=== PATIENT | male | born 1960 | race Caucasian/White ===

== ENCOUNTER 2020-06-13 08:14 | Emergency (ER) | payer OTHER, SELFPAY ==
--- NOTE | 2020-06-13 | XR_ITS ---
EXAMINATION: XR CHEST, PORTABLE CLINICAL INFORMATION: Cough, fever COMPARISON: Report chest radiograph 04/30/2017, images unavailable TECHNIQUE: Portable upright AP view of the chest is performed. FINDINGS: There are low lung volumes. There is no airspace consolidation or definite groundglass opacity. No effusion. The heart is normal in size. The vascularity is normal. The hilar and mediastinal contours are unremarkable. No acute bony abnormality. IMPRESSION: No airspace consolidation or definite groundglass opacity.
[2020-06-13 08:26] VITALS: BP 126/85; PULSE 127; RESP 20; TEMP 38.4; O2SAT 95; BMI 27.9
--- NOTE | 2020-06-13 08:40 | ED_ITS ---
HPI - URI/Sore Throat General Chief Complaint: Fever Stated Complaint: COUGH, CHILLS, BODY ACHES Time Seen by Provider: 06/13/20 08:25 Related Data Allergies Allergy/AdvReac Type Severity Reaction Status Date / Time No Known Allergies Allergy Mild N/A Unverified 05/30/20 14:43 Review of Systems Constitutional: Constitutional: Reports as per HPI, Denies difficulty sleeping, Reports fever(s), Denies headache(s) and Denies snoring Eyes: Eyes: Reports as per HPI ENT: Denies dysphagia, Denies headache(s), Denies odynophagia and Reports post nasal drip Cardiovascular: Cardiovascular: Denies acrocyanosis, Denies chest pain with activity, Denies pedal edema, Denies edema, Denies lightheadedness, Denies Loss of Consciousness, Denies radiating jaw, neck or arm pain, Denies palpitations, Denies dyspnea, Denies dyspnea on exertion, Denies orthopnea and Denies paroxysmal nocturnal dyspnea Respiratory: Respiratory: Reports cough, Denies hemoptysis, Denies excessive phlegm production, Denies pain on inspiration, Denies pain with cough, Denies dyspnea, Denies dyspnea on exertion and Denies snoring Gastrointestinal: Gastrointestinal: Denies hematochezia, Denies change in bowel habits, Denies tenesmus, Denies change in stool character, Denies coffee ground emesis, Denies constipation, Denies GI cramping, Denies dysphagia, Denies excessive flatus, Denies early satiety, Denies dyspepsia, Denies heartburn, Denies fecal incontinence, Denies diarrhea, Denies loose stools, Denies nausea, Denies odynophagia and Denies hematemesis Musculoskeletal: Musculoskeletal: Reports no additional musculoskeletal complaints Integumentary/Breasts: Skin/Breast: Reports system reviewed and no additional complaints, except as docu Neurologic: Reports system reviewed and no additional complaints, except as documented and Denies headache(s) Psychiatric: Psychiatric: Reports no additional psychiatric complaints Endocrine: Endocrine: Denies palpitations PMFSH Past Medical History Medical History (Updated 06/13/20 @ 14:26 by Checo Mancilla NP) Epilepsia High blood cholesterol HTN (hypertension) Surgical History (Updated 06/13/20 @ 08:34 by Bruna Hernandez) History of appendectomy History of left knee replacement History of placement of ear tubes Social History Social History Alcohol intake: current Alcohol intake frequency: a few times a month Alcohol type: beer Smoked in Last 30 Days: No Use of substances other than those prescribed or required for medical reasons: No Advance Directives: No Advance Directives Information Provided: Yes Advance Directives on File: No Physical Exam Vital Signs and I&O and Narrative: Vital Signs and I&O: Vital Signs Temp 100.2 F 06/13/20 14:14 Pulse 100 06/13/20 14:14 Resp 18 06/13/20 14:14 BP 127/81 06/13/20 14:14 Pulse Ox 95 06/13/20 14:14 Intake & Output 06/12/20 06/13/20 06/13/20 18:59 06:59 18:59 Weight 83.461 kg Body Mass Index 27.9 Const: General: cooperative and healthy appearing; No acute distress Orientation/consciousness: oriented to person, oriented to place, oriented to time and patient oriented x3 HENMT: Head: Yes normal to inspection Eyes: Visual Howell: normal visual howell by confrontation Neck: Neck: Yes normal visual inspection Chest: Chest palpation & inspection: normal inspection of the chest Resp: Effort & Inspection: normal respiratory effort Cardio: Jugular venous distension: JVD present : General: Yes no CVA tenderness Back/Spine/Pelvis: Back: no CVA tenderness Skin: General skin exam: no rashes or lesions noted Neuro: General: oriented to person, oriented to place, oriented to time and patient oriented x3 MDM - URI/Sore Throat MDM Narrative Medical decision making narrative: Significant others with similar symptoms. Here more to get COVID-19 test. Otherwise overall nontoxic appearing. Labs overall stable. Chest x-ray negative. COVID-19 positive. Differential Diagnosis Differential diagnosis: Likely upper respiratory infection, viral infection and influenza; Unlikely croup, otitis media, sinusitis, bronchitis and pharyngitis Lab Data Result diagrams: 06/13/20 09:45 06/13/20 09:45 Labs: Lab Results 06/13/20 06/13/20 06/13/20 Range/Units 09:45 09:45 09:45 WBC 5.9 (4.8-10.8) X10*3/uL RBC 4.64 (4.60-5.80) X10*6/uL Hgb 15.5 (14.0-18.0) g/dl Hct 44.7 (42-52) % MCV 96.3 (80-98) fL MCH 33.4 H (27.0-33.0) pg MCHC 34.7 (31.0-36.0) g/dl RDW 13.1 (11.0-16.0) % Plt Count 90 L (160-400) X10*3/uL MPV 10.5 (9.4-12.4) fL Immature Gran % (Auto) 0.5 H (0.0-0.4) % Neut % (Auto) 90.2 H (45-73) % Lymph % (Auto) 3.9 L (20-40) % [place] % (Auto) 5.4 (2-11) % Eos % (Auto) 0.0 (0-4) % Baso % (Auto) 0.0 (0-2) % Neut # (Auto) 5.3 (2.0-8.3) X10*3/uL Lymph # (Auto) 0.2 L (1.2-4.9) X10*3/uL [place] # (Auto) 0.3 (0.1-1.2) X10*3/uL Eos # (Auto) 0.0 (0.0-0.4) X10*3/uL Baso # (Auto) 0.0 (0.0-0.2) X10*3/uL Abs Immat Gran (auto) 0.03 (0.00-0.03) X10*3/uL Absolute Nucleated RBC 0.000 (0.0-0.012) X10*3/uL Nucleated RBC % (auto) 0.0 (0.0-0.2) /100WBC Smear Tech's Comments VERIFIED Sodium 139 (135-145) mmol/L Potassium 4.4 (3.3-5.1) mmol/l Chloride 104 (96-108) mmol/L Carbon Dioxide 27 (22-29) mmol/L Anion Gap 12 (12-20) BUN 11 (9-16) mg/dL Creatinine (0.5-1.4) mg/dL Estim Creat Clear Calc 81.2 Estimated GFR > 60 Random Glucose 112 (60-115) mg/dL Lactic Acid 1.3 (0.5-2.0) mmol/L Calcium 9.5 (8.4-10.2) mg/dL Coronavirus (PCR) (Negative) Influenza Type A (PCR) (Negative) Influenza Type B (PCR) (Negative) Influenza A & B Note RSV RNA Qual (PCR) (Negative) 06/13/20 06/13/20 Range/Units 12:35 12:35 WBC (4.8-10.8) X10*3/uL RBC (4.60-5.80) X10*6/uL Hgb (14.0-18.0) g/dl Hct (42-52) % MCV (80-98) fL MCH (27.0-33.0) pg MCHC (31.0-36.0) g/dl RDW (11.0-16.0) % Plt Count (160-400) X10*3/uL MPV (9.4-12.4) fL Immature Gran % (Auto) (0.0-0.4) % Neut % (Auto) (45-73) % Lymph % (Auto) (20-40) % [place] % (Auto) (2-11) % Eos % (Auto) (0-4) % Baso % (Auto) (0-2) % Neut # (Auto) (2.0-8.3) X10*3/uL Lymph # (Auto) (1.2-4.9) X10*3/uL [place] # (Auto) (0.1-1.2) X10*3/uL Eos # (Auto) (0.0-0.4) X10*3/uL Baso # (Auto) (0.0-0.2) X10*3/uL Abs Immat Gran (auto) (0.00-0.03) X10*3/uL Absolute Nucleated RBC (0.0-0.012) X10*3/uL Nucleated RBC % (auto) (0.0-0.2) /100WBC Smear Tech's Comments Sodium (135-145) mmol/L Potassium (3.3-5.1) mmol/l Chloride (96-108) mmol/L Carbon Dioxide (22-29) mmol/L Anion Gap (12-20) BUN (9-16) mg/dL Creatinine (0.5-1.4) mg/dL Estim Creat Clear Calc Estimated GFR Random Glucose (60-115) mg/dL Lactic Acid (0.5-2.0) mmol/L Calcium (8.4-10.2) mg/dL Coronavirus (PCR) POSITIVE (Negative) Influenza Type A (PCR) NEGATIVE (Negative) Influenza Type B (PCR) NEGATIVE (Negative) Influenza A & B Note See Note RSV RNA Qual (PCR) NEGATIVE (Negative) Discharge Plan Discharge Clinical Impression: Viral infection Patient Disposition: Home, Self-Care Instructions: COVID-19 (Coronavirus Disease 2019) (ED)
[2020-06-13] MEDS: 0.9 % Sodium Chloride 1,000 ML 999 ML IVCONT ×2 (09:50→14:21)
[2020-06-13 10:01] LABS: Lymphocytes Absolute Auto 0.2 X10*3/uL (1.2-4.9); MANUAL DIFF FLAG SCAN; Mean Platelet Volume 10.5 fL (9.4-12.4); PLT CLUMP 1; Red Cell Distribution Width 13.1 % (11.0-16.0); SCAN SMEAR FLAG 1
[2020-06-13 10:03] LABS: Hematocrit 44.7 % (42-52); Hemoglobin 15.5 g/dl (14.0-18.0); Imm Gran Abs Auto 0.03 X10*3/uL (0.00-0.03); Imm Gran Pct Auto 0.5 % (0.0-0.4); Lymphocytes Percent Auto 3.9 % (20-40); Mean Corpuscular HGB Conc 34.7 g/dl (31.0-36.0); Mean Corpuscular Hemoglobin 33.4 pg (27.0-33.0); Mean Corpuscular Volume 96.3 fL (80-98); Monocytes Absolute Auto 0.3 X10*3/uL (0.1-1.2); Monocytes Percent Auto 5.4 % (2-11); Neutrophils Absolute Auto 5.3 X10*3/uL (2.0-8.3); Neutrophils Percent Auto 90.2 % (45-73); Red Blood Count 4.64 X10*6/uL (4.60-5.80); White Blood Count 5.9 X10*3/uL (4.8-10.8)
[2020-06-13 10:19] LABS: Lactic Acid 1.3 mmol/L (0.5-2.0)
[2020-06-13] MEDS: Acetaminophen 325 MG TABLET 975 MG PO (10:26)
[2020-06-13 10:30] VITALS: TEMP 39.1
[2020-06-13 10:34] LABS: Platelet Count 90 X10*3/uL (160-400); SLIDE REVIEW VERIFIED
[2020-06-13 10:35] LABS: Anion Gap 12 (12-20); Blood Urea Nitrogen 11 mg/dL (9-16); Calcium 9.5 mg/dL (8.4-10.2); Carbon Dioxide 27 mmol/L (22-29); Chloride 104 mmol/L (96-108); Creatinine Clr Calc Pharmacy 81.2; Estimated Glomerular Filt Rate > 60; Glucose Random 112 mg/dL (60-115); Potassium 4.4 mmol/l (3.3-5.1); Sodium 139 mmol/L (135-145)
[2020-06-13 11:15] VITALS: TEMP 38.6; O2SAT 95
[2020-06-13] MEDS: Ketorolac Tromethamine 15 MG/ML VIAL 30 MG IV (13:13)
[2020-06-13 13:26] LABS: Influenza A PCR NEGATIVE (Negative); Influenza B PCR NEGATIVE (Negative); Resp Syncy Virus RNA Qual PCR NEGATIVE (Negative)
[2020-06-13 13:37] LABS: SARS COV2 PCR INHOUSE POSITIVE (Negative)
[2020-06-13 13:38] VITALS: BP 100/73; PULSE 64; RESP 14
[2020-06-13 14:14] VITALS: BP 127/81; PULSE 100; RESP 18; TEMP 37.9; O2SAT 95
== END 2020-06-13 14:55 | disposition home or self-care (01) ==
PROVIDERS: Nurse Practitioner Primary Care; Emergency Provider Emergency Medicine; PCP Internal Medicine
DX: U07.1 COVID-19 (principal); I10 Essential (primary) hypertension
CPT/HCPCS: 36415; 71045; 80048; 83605; 85025; 87040; 87631; 87635; 96361; 96374; 99284

== ENCOUNTER 2020-07-01 08:38 | Outpatient (REF) | payer OTHER, SELFPAY ==
[2020-07-01 11:10] LABS: Glucose Urine UA NEG (NEG); Leukocyte Esterase Urine NEG (NEG); Nitrite Urine NEG (NEG); Urine Blood NEG (NEG); Urine Ketones NEG (NEG); Urine Protein NEG (NEG-TRACE)
[2020-07-01 11:19] LABS: Appearance Urine CLEAR; Color Urine YELLOW
[2020-07-01 11:46] LABS: Phenytoin Dilantin 8.5 ug/mL (10.0-20.0)
[2020-07-01 11:51] LABS: Alanine Aminotransferase 37 U/L (0-40); Albumin Level 4.5 g/dL (3.5-5.0); Alkaline Phosphatase 85 U/L (39-117); Anion Gap 12 (12-20); Aspartate Amino Transferase 18 U/L (5-37); Bilirubin Total 0.5 mg/dL (0.0-1.0); Blood Urea Nitrogen 13 mg/dL (9-16); Calcium 9.6 mg/dL (8.4-10.2); Carbon Dioxide 26 mmol/L (22-29); Chloride 107 mmol/L (96-108); Cholesterol 120 mg/dL; Estimated Glomerular Filt Rate > 60; Glucose Fasting 96 mg/dL (60-99); HDL Cholesterol 42 mg/dL; LDL Cholesterol Calculated 54 mg/dl; Potassium 4.2 mmol/l (3.3-5.1); Sodium 141 mmol/L (135-145); Total Protein 6.6 g/dL (6.5-8.0); Triglycerides 122 mg/dL
[2020-07-01 11:57] LABS: TSH reflex Free T4 0.76 mIU/mL (0.32-4.0)
== END 2020-07-01 08:39 | disposition home or self-care (01) ==
LOC: HO.10HDL 08:38
PROVIDERS: Visit Provider Internal Medicine
DX: I10 Essential (primary) hypertension (principal); E78.5 Hyperlipidemia, unspecified; G40.909 Epilepsy, unspecified, not intractable, without status epilepticus; K21.9 Gastro-esophageal reflux disease without esophagitis; E66.3 Overweight
CPT/HCPCS: 80053; 80061; 80185; 81003; 84443

== ENCOUNTER 2020-10-01 08:18 | Outpatient (REF) | payer OTHER, SELFPAY ==
[2020-10-01 10:08] LABS: MANUAL DIFF FLAG NO
[2020-10-01 10:14] LABS: Basophils Percent Auto 0.2 % (0-2); Hemoglobin 15.9 g/dl (14.0-18.0); Imm Gran Abs Auto 0.02 X10*3/uL (0.00-0.03); Imm Gran Pct Auto 0.5 % (0.0-0.4); Lymphocytes Absolute Auto 0.7 X10*3/uL (1.2-4.9); Lymphocytes Percent Auto 17.3 % (20-40); Mean Corpuscular HGB Conc 34.6 g/dl (31.0-36.0); Mean Corpuscular Hemoglobin 32.9 pg (27.0-33.0); Mean Platelet Volume 10.9 fL (9.4-12.4); Monocytes Absolute Auto 0.3 X10*3/uL (0.1-1.2); Monocytes Percent Auto 6.6 % (2-11); Neutrophils Absolute Auto 3.1 X10*3/uL (2.0-8.3); Neutrophils Percent Auto 75.4 % (45-73); Platelet Count 150 X10*3/uL (160-400); Red Blood Count 4.84 X10*6/uL (4.60-5.80); Red Cell Distribution Width 13.7 % (11.0-16.0); White Blood Count 4.1 X10*3/uL (4.8-10.8)
[2020-10-01 10:56] LABS: Alanine Aminotransferase 33 U/L (0-40); Albumin Level 4.7 g/dL (3.5-5.0); Alkaline Phosphatase 73 U/L (39-117); Anion Gap 13 (12-20); Aspartate Amino Transferase 20 U/L (5-37); Bilirubin Total 0.5 mg/dL (0.0-1.0); Blood Urea Nitrogen 15 mg/dL (9-16); Calcium 9.4 mg/dL (8.4-10.2); Carbon Dioxide 25 mmol/L (22-29); Chloride 106 mmol/L (96-108); Cholesterol 169 mg/dL; Estimated Glomerular Filt Rate > 60; Glucose Fasting 103 mg/dL (60-99); HDL Cholesterol 59 mg/dL; LDL Cholesterol Calculated 88 mg/dl; Potassium 4.3 mmol/l (3.3-5.1); Sodium 140 mmol/L (135-145); Total Protein 6.9 g/dL (6.5-8.0); Triglycerides 111 mg/dL
[2020-10-01 10:57] LABS: Glucose Urine UA NEG (NEG); Leukocyte Esterase Urine NEG (NEG); Nitrite Urine NEG (NEG); Urine Blood NEG (NEG); Urine Ketones NEG (NEG); Urine Protein NEG (NEG-TRACE)
[2020-10-01 10:58] LABS: Appearance Urine CLEAR; Color Urine YELLOW
[2020-10-01 11:19] LABS: TSH reflex Free T4 1.11 mIU/mL (0.32-4.0)
[2020-10-01 11:32] LABS: Phenytoin Dilantin 12.3 ug/mL (10.0-20.0)
== END 2020-10-01 08:19 | disposition home or self-care (01) ==
LOC: HO.10HDL 08:18
PROVIDERS: Visit Provider Internal Medicine
DX: E78.00 Pure hypercholesterolemia, unspecified (principal); G40.909 Epilepsy, unspecified, not intractable, without status epilepticus; E66.3 Overweight; K21.9 Gastro-esophageal reflux disease without esophagitis; I10 Essential (primary) hypertension
CPT/HCPCS: 36415; 80053; 80061; 80185; 81003; 84443; 85025

== ENCOUNTER 2020-12-24 08:06 | Outpatient (REF) | payer OTHER, SELFPAY ==
[2020-12-24 10:15] LABS: MANUAL DIFF FLAG NO
[2020-12-24 10:36] LABS: Basophils Percent Auto 0.6 % (0-2); Hematocrit 45.3 % (42-52); Hemoglobin 15.5 g/dl (14.0-18.0); Imm Gran Abs Auto 0.01 X10*3/uL (0.00-0.03); Imm Gran Pct Auto 0.3 % (0.0-0.4); Lymphocytes Absolute Auto 0.8 X10*3/uL (1.2-4.9); Lymphocytes Percent Auto 22.2 % (20-40); Mean Corpuscular HGB Conc 34.2 g/dl (31.0-36.0); Mean Corpuscular Hemoglobin 32.6 pg (27.0-33.0); Mean Corpuscular Volume 95.4 fL (80-98); Monocytes Absolute Auto 0.2 X10*3/uL (0.1-1.2); Monocytes Percent Auto 6.4 % (2-11); Neutrophils Absolute Auto 2.4 X10*3/uL (2.0-8.3); Neutrophils Percent Auto 70.5 % (45-73); Platelet Count 136 X10*3/uL (160-400); Red Blood Count 4.75 X10*6/uL (4.60-5.80); Red Cell Distribution Width 13.5 % (11.0-16.0); White Blood Count 3.4 X10*3/uL (4.8-10.8)
[2020-12-24 10:41] LABS: Alanine Aminotransferase 24 U/L (0-40); Albumin Level 4.5 g/dL (3.5-5.0); Alkaline Phosphatase 70 U/L (39-117); Anion Gap 13 (12-20); Aspartate Amino Transferase 19 U/L (5-37); Bilirubin Total 0.5 mg/dL (0.0-1.0); Blood Urea Nitrogen 16 mg/dL (9-16); Calcium 9.2 mg/dL (8.4-10.2); Carbon Dioxide 24 mmol/L (22-29); Chloride 106 mmol/L (96-108); Cholesterol 161 mg/dL; Estimated Glomerular Filt Rate > 60; Glucose Fasting 153 mg/dL (60-99); HDL Cholesterol 54 mg/dL; LDL Cholesterol Calculated 82 mg/dl; Potassium 3.9 mmol/L (3.3-5.1); Sodium 139 mmol/L (135-145); Total Protein 6.7 g/dL (6.5-8.0); Triglycerides 125 mg/dL
[2020-12-24 10:51] LABS: Glucose Urine UA NEG (NEG); Leukocyte Esterase Urine NEG (NEG); Nitrite Urine NEG (NEG); PH 5.5 (5.0-8.0); Urine Blood NEG (NEG); Urine Ketones NEG (NEG); Urine Protein NEG (NEG-TRACE)
[2020-12-24 10:55] LABS: Appearance Urine CLEAR; Color Urine YELLOW
[2020-12-24 10:59] LABS: Phenytoin Dilantin 10.1 ug/mL (10.0-20.0)
[2020-12-24 11:04] LABS: TSH reflex Free T4 1.14 uIU/mL (0.32-4.0)
== END 2020-12-24 08:07 | disposition home or self-care (01) ==
LOC: HO.10HDL 08:06
PROVIDERS: Visit Provider Internal Medicine
DX: G47.33 Obstructive sleep apnea (adult) (pediatric) (principal); E78.00 Pure hypercholesterolemia, unspecified; I10 Essential (primary) hypertension; K21.9 Gastro-esophageal reflux disease without esophagitis; K59.00 Constipation, unspecified; G40.909 Epilepsy, unspecified, not intractable, without status epilepticus; E66.3 Overweight; Z79.899 Other long term (current) drug therapy
CPT/HCPCS: 36415; 80053; 80061; 80185; 81003; 84443; 85025

== ENCOUNTER 2021-04-01 08:06 | Outpatient (REF) | payer OTHER, SELFPAY ==
[2021-04-01 08:28] LABS: MANUAL DIFF FLAG NO
[2021-04-01 08:41] LABS: Hematocrit 42.7 % (42-52); Hemoglobin 14.9 g/dl (14.0-18.0); Imm Gran Abs Auto 0.03 X10*3/uL (0.00-0.03); Imm Gran Pct Auto 0.7 % (0.0-0.4); Lymphocytes Absolute Auto 0.7 X10*3/uL (1.2-4.9); Lymphocytes Percent Auto 16.6 % (20-40); Mean Corpuscular HGB Conc 34.9 g/dl (31.0-36.0); Mean Corpuscular Hemoglobin 33.3 pg (27.0-33.0); Mean Corpuscular Volume 95.3 fL (80-98); Mean Platelet Volume 10.4 fL (9.4-12.4); Monocytes Absolute Auto 0.3 X10*3/uL (0.1-1.2); Monocytes Percent Auto 7.4 % (2-11); Neutrophils Absolute Auto 3.3 X10*3/uL (2.0-8.3); Neutrophils Percent Auto 75.3 % (45-73); Platelet Count 126 X10*3/uL (160-400); Red Blood Count 4.48 X10*6/uL (4.60-5.80); Red Cell Distribution Width 13.2 % (11.0-16.0); White Blood Count 4.3 X10*3/uL (4.8-10.8)
[2021-04-01 09:06] LABS: Alanine Aminotransferase 25 U/L (0-40); Albumin Level 4.4 g/dL (3.5-5.0); Alkaline Phosphatase 71 U/L (39-117); Anion Gap 11 (12-20); Aspartate Amino Transferase 20 U/L (5-37); Bilirubin Total 0.5 mg/dL (0.0-1.0); Blood Urea Nitrogen 11 mg/dL (9-16); Calcium 9.3 mg/dL (8.4-10.2); Carbon Dioxide 25 mmol/L (22-29); Chloride 107 mmol/L (96-108); Cholesterol 161 mg/dL; Estimated Glomerular Filt Rate > 60; Glucose Fasting 101 mg/dL (60-99); HDL Cholesterol 57 mg/dL; LDL Cholesterol Calculated 87 mg/dl; Potassium 4.1 mmol/L (3.3-5.1); Sodium 139 mmol/L (135-145); Total Protein 6.5 g/dL (6.5-8.0); Triglycerides 88 mg/dL
[2021-04-01 09:26] LABS: Phenytoin Dilantin 8.1 ug/mL (10.0-20.0)
[2021-04-01 09:30] LABS: TSH reflex Free T4 0.89 uIU/mL (0.32-4.0)
[2021-04-01 10:57] LABS: Glucose Urine UA NEG (NEG); Leukocyte Esterase Urine NEG (NEG); Nitrite Urine NEG (NEG); Urine Blood NEG (NEG); Urine Ketones NEG (NEG); Urine Protein NEG (NEG-TRACE)
[2021-04-01 11:00] LABS: Appearance Urine CLEAR; Color Urine YELLOW
== END 2021-04-01 08:07 | disposition home or self-care (01) ==
LOC: HO.LAB 08:06
PROVIDERS: PCP Internal Medicine; Visit Provider Internal Medicine
DX: I10 Essential (primary) hypertension (principal); E78.00 Pure hypercholesterolemia, unspecified; E66.3 Overweight; G40.909 Epilepsy, unspecified, not intractable, without status epilepticus; K21.9 Gastro-esophageal reflux disease without esophagitis
CPT/HCPCS: 36415; 80053; 80061; 80185; 81003; 84443; 85025

== ENCOUNTER 2021-06-10 16:39 | Outpatient (REF) | payer OTHER, SELFPAY | END 2021-06-10 16:40 | disposition home or self-care (01) | LOC: HO.LNP 16:39 | PROVIDERS: Visit Provider Physician Assistant Medical | DX: J01.90 Acute sinusitis, unspecified (principal); Z20.822 Contact with and (suspected) exposure to COVID-19 | CPT/HCPCS: U0003; U0005 ==

== ENCOUNTER 2022-06-03 06:37 | Outpatient (REF) | payer OTHER, SELFPAY ==
[2022-06-03 06:42] LABS: MANUAL DIFF FLAG NO
[2022-06-03 07:43] LABS: Basophils Percent Auto 0.2 % (0-2); Hematocrit 43.4 % (42.0-52.0); Hemoglobin 15.1 g/dl (14.0-18.0); Imm Gran Abs Auto 0.03 X10*3/uL (0.00-0.03); Imm Gran Pct Auto 0.5 % (0.0-0.4); Lymphocytes Absolute Auto 0.9 X10*3/uL (1.2-4.9); Lymphocytes Percent Auto 14.9 % (20-40); Mean Corpuscular HGB Conc 34.8 g/dl (31.0-36.0); Mean Corpuscular Hemoglobin 32.4 pg (27.0-33.0); Mean Corpuscular Volume 93.1 fL (80.0-98.0); Mean Platelet Volume 10.9 fL (9.4-12.4); Monocytes Absolute Auto 0.4 X10*3/uL (0.1-1.2); Monocytes Percent Auto 7.2 % (2-11); Neutrophils Absolute Auto 4.5 x10*3/uL (2.0-8.3); Neutrophils Percent Auto 77.2 % (45-73); Platelet Count 142 X10*3/uL (160-400); Red Blood Count 4.66 X10*6/uL (4.60-5.80); Red Cell Distribution Width 13.5 % (11.0-16.0); White Blood Count 5.9 X10*3/uL (4.8-10.8)
[2022-06-03 08:00] LABS: Alanine Aminotransferase 31 U/L (0-40); Albumin Level 4.6 g/dL (3.5-5.0); Alkaline Phosphatase 84 U/L (39-117); Anion Gap 16 (12-20); Aspartate Amino Transferase 16 U/L (5-37); Bilirubin Total 0.6 mg/dL (0.0-1.0); Blood Urea Nitrogen 15 mg/dL (9-16); Carbon Dioxide 23 mmol/L (22-29); Chloride 106 mmol/L (96-108); Cholesterol 183 mg/dL; Estimated Glomerular Filt Rate > 60; Glucose Fasting 107 mg/dL (60-99); HDL Cholesterol 63 mg/dL; LDL Cholesterol Calculated 102 mg/dl; Potassium 4.2 mmol/L (3.3-5.1); Sodium 141 mmol/L (135-145); Total Protein 6.9 g/dL (6.5-8.0); Triglycerides 91 mg/dL
[2022-06-03 08:14] LABS: Prostate Specific Antigen Scr 0.12 ng/mL (<0.05-4.0); TSH reflex Free T4 1.53 uIU/mL (0.32-4.0); Vitamin D 25-OH Total 46.7 ng/mL (>30)
[2022-06-03 08:26] LABS: Appearance Urine Clear; Color Urine Yellow; Glucose Urine UA Negative (Negative); Leukocyte Esterase Urine Negative (Negative); Nitrite Urine Negative (Negative); Specific Gravity - Urine 1.025 (1.005-1.025); Urine Blood Negative (Negative); Urine Ketones Trace mg/dL (Negative); Urine Protein Negative (Neg-Trace)
[2022-06-03 09:54] LABS: Phenytoin Dilantin 7.2 ug/mL (10.0-20.0)
== END 2022-06-03 06:38 | disposition home or self-care (01) ==
LOC: HO.LAB 06:37
PROVIDERS: PCP Internal Medicine; Visit Provider Internal Medicine
DX: Z00.00 Encounter for general adult medical examination without abnormal findings (principal); Z12.5 Encounter for screening for malignant neoplasm of prostate; E78.00 Pure hypercholesterolemia, unspecified; E55.9 Vitamin D deficiency, unspecified; I10 Essential (primary) hypertension; G40.909 Epilepsy, unspecified, not intractable, without status epilepticus
CPT/HCPCS: 36415; 80053; 80061; 80185; 81003; 82306; 84153; 84443; 85025

== ENCOUNTER 2022-10-07 11:50 | Outpatient (REF) | payer OTHER, SELFPAY ==
[2022-10-07 12:01] LABS: MANUAL DIFF FLAG NO
[2022-10-07 12:31] LABS: Basophils Percent Auto 0.3 % (0-2); Hematocrit 44.1 % (42.0-52.0); Hemoglobin 15.5 g/dl (14.0-18.0); Imm Gran Abs Auto 0.02 X10*3/uL (0.00-0.03); Imm Gran Pct Auto 0.3 % (0.0-0.4); Lymphocytes Percent Auto 16.9 % (20-40); Mean Corpuscular HGB Conc 35.1 g/dl (31.0-36.0); Mean Corpuscular Hemoglobin 32.8 pg (27.0-33.0); Mean Corpuscular Volume 93.2 fL (80.0-98.0); Mean Platelet Volume 10.8 fL (9.4-12.4); Monocytes Absolute Auto 0.4 X10*3/uL (0.1-1.2); Monocytes Percent Auto 6.4 % (2-11); Neutrophils Absolute Auto 4.4 x10*3/uL (2.0-8.3); Neutrophils Percent Auto 76.1 % (45-73); Platelet Count 145 X10*3/uL (160-400); Red Blood Count 4.73 X10*6/uL (4.60-5.80); Red Cell Distribution Width 13.6 % (11.0-16.0); White Blood Count 5.8 X10*3/uL (4.8-10.8)
[2022-10-07 12:33] LABS: Appearance Urine Clear; Color Urine Yellow; Glucose Urine UA Negative (Negative); Leukocyte Esterase Urine Negative (Negative); Nitrite Urine Negative (Negative); PH 5.5 (5.0-9.0); Specific Gravity - Urine >= 1.030 (1.005-1.025); Urine Blood Negative (Negative); Urine Ketones Trace mg/dL (Negative); Urine Protein Negative (Neg-Trace)
[2022-10-07 12:54] LABS: Phenytoin Dilantin 10.3 ug/mL (10.0-20.0)
[2022-10-07 13:03] LABS: Alanine Aminotransferase 29 U/L (0-40); Albumin Level 4.6 g/dL (3.5-5.0); Alkaline Phosphatase 69 U/L (39-117); Anion Gap 15 (12-20); Aspartate Amino Transferase 22 U/L (5-37); Bilirubin Total 0.6 mg/dL (0.0-1.0); Blood Urea Nitrogen 21 mg/dL (9-16); Calcium 9.6 mg/dL (8.4-10.2); Carbon Dioxide 23 mmol/L (22-29); Chloride 109 mmol/L (96-108); Cholesterol 166 mg/dL; Estimated Glomerular Filt Rate > 60; Glucose Fasting 95 mg/dL (60-99); HDL Cholesterol 59 mg/dL; LDL Cholesterol Calculated 85 mg/dl; Potassium 4.4 mmol/L (3.3-5.1); Sodium 143 mmol/L (135-145); Total Protein 6.6 g/dL (6.5-8.0); Triglycerides 113 mg/dL
[2022-10-07 13:18] LABS: TSH reflex Free T4 1.11 uIU/mL (0.32-4.0); Vitamin D 25-OH Total 15.1 ng/mL (>30)
== END 2022-10-07 11:51 | disposition home or self-care (01) ==
LOC: HO.LAB 11:50
PROVIDERS: PCP Internal Medicine; Visit Provider Internal Medicine
DX: I10 Essential (primary) hypertension (principal); E78.00 Pure hypercholesterolemia, unspecified; E55.9 Vitamin D deficiency, unspecified; G40.909 Epilepsy, unspecified, not intractable, without status epilepticus
CPT/HCPCS: 36415; 80053; 80061; 80185; 81003; 82306; 84443; 85025

== ENCOUNTER 2023-01-21 08:33 | Outpatient (REF) | payer OTHER, SELFPAY ==
[2023-01-21 09:02] LABS: MANUAL DIFF FLAG NO
[2023-01-21 09:23] LABS: Basophils Percent Auto 0.4 % (0-2); Eosinophils Percent Auto 0.2 % (0-4); Hematocrit 43.4 % (42.0-52.0); Imm Gran Abs Auto 0.04 X10*3/uL (0.00-0.03); Imm Gran Pct Auto 0.7 % (0.0-0.4); Lymphocytes Absolute Auto 0.8 X10*3/uL (1.2-4.9); Mean Corpuscular HGB Conc 34.6 g/dl (31.0-36.0); Mean Corpuscular Hemoglobin 32.4 pg (27.0-33.0); Mean Corpuscular Volume 93.7 fL (80.0-98.0); Mean Platelet Volume 10.6 fL (9.4-12.4); Monocytes Absolute Auto 0.3 X10*3/uL (0.1-1.2); Monocytes Percent Auto 5.8 % (2-11); Neutrophils Absolute Auto 4.3 x10*3/uL (2.0-8.3); Neutrophils Percent Auto 77.9 % (45-73); Platelet Count 208 X10*3/uL (160-400); Red Blood Count 4.63 X10*6/uL (4.60-5.80); Red Cell Distribution Width 13.7 % (11.0-16.0); White Blood Count 5.5 X10*3/uL (4.8-10.8)
[2023-01-21 09:34] LABS: Appearance Urine Clear; Color Urine Yellow; Glucose Urine UA Negative (Negative); Leukocyte Esterase Urine Negative (Negative); Nitrite Urine Negative (Negative); PH 6.5 (5.0-9.0); Specific Gravity - Urine 1.015 (1.005-1.025); Urine Blood Negative (Negative); Urine Ketones Negative (Negative); Urine Protein Negative (Neg-Trace)
[2023-01-21 10:19] LABS: Phenytoin Dilantin 8.8 ug/mL (10.0-20.0)
[2023-01-21 10:33] LABS: Alanine Aminotransferase 22 U/L (0-40); Albumin Level 4.2 g/dL (3.5-5.0); Alkaline Phosphatase 62 U/L (39-117); Anion Gap 11 (12-20); Aspartate Amino Transferase 17 U/L (5-37); Bilirubin Total 0.6 mg/dL (0.0-1.0); Blood Urea Nitrogen 15 mg/dL (9-16); Calcium 9.4 mg/dL (8.4-10.2); Carbon Dioxide 25 mmol/L (22-29); Chloride 108 mmol/L (96-108); Cholesterol 143 mg/dL; Estimated Glomerular Filt Rate > 60; Glucose Fasting 97 mg/dL (60-99); HDL Cholesterol 55 mg/dL; LDL Cholesterol Calculated 78 mg/dl; Potassium 4.4 mmol/L (3.3-5.1); Sodium 140 mmol/L (135-145); Total Protein 6.3 g/dL (6.5-8.0); Triglycerides 53 mg/dL
[2023-01-21 10:41] LABS: TSH reflex Free T4 0.51 uIU/mL (0.32-4.0); Vitamin D 25-OH Total 33.6 ng/mL (>30)
== END 2023-01-21 08:34 | disposition home or self-care (01) ==
LOC: HO.LAB 08:33
PROVIDERS: PCP Internal Medicine; Visit Provider Internal Medicine
DX: R30.0 Dysuria (principal); E55.9 Vitamin D deficiency, unspecified; I10 Essential (primary) hypertension; G40.909 Epilepsy, unspecified, not intractable, without status epilepticus; E78.00 Pure hypercholesterolemia, unspecified
CPT/HCPCS: 36415; 80053; 80061; 80185; 81003; 82306; 84443; 85025

== ENCOUNTER 2023-04-12 16:42 | Outpatient (AMB) | payer OTHER, SELFPAY ==
[2023-04-12 16:46] VITALS: BP 122/78; PULSE 80; O2SAT 96; BMI 26.9
--- NOTE | 2023-04-12 16:46 | MHC.PC.OV ---
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 Accompanied by: Self / Same As Patient Allergies No Known Allergies Allergy (Mild, Verified 04/12/23 17:10) N/A Medication List - Last Reconciled 04/12/23 by Moises Pierre MD atorvastatin 40 mg PO DAILY cgzneagoph-deuwdynloiekk-ssry 50-325-40 mg 1 tab PO Q6H PRN celecoxib 200 mg PO DAILY PRN 90 days docusate sodium 100 mg PO DAILY PRN escitalopram oxalate 10 mg PO DAILY gabapentin 400 mg PO TID 90 days lisinopril 5 mg PO DAILY mirtazapine 30 mg PO BEDTIME omeprazole 20 mg PO DAILY phenytoin sodium extended 200 mg (2 x 100 mg) PO BID sildenafil 50 mg PO DAILY PRN tramadol 50 mg PO Q6H PRN 90 days zolpidem 10 mg PO BEDTIME PRN 30 days Tobacco use date assessed: 04/12/23 Dental Screening Dental Screen Date: 04/12/23 Did you have a dental visit in the last 12 months?: No Did you have a dental problem in the last 6 months where you did not have access to dental care?: No Was dental information given to patient?: Patient has dentist HPI hyperlipidemia, HTN, OA HPI Details Patient comes in today for his follow up visit States that he feels okay Missed his appointment back in January 2023 due to a scheduling conflict - ended up having to work that day He denies any headaches or dizziness Denies any chest pains, no SOB No nausea/vomiting, no abdominal pain No change in bowel habits noted Had some follow up labs done back in January 2023; has no other follow up labs done since [facility] Medical History Anxiety Benign essential hypertension Constipation Depression Epilepsia Epilepsy GERD (gastroesophageal reflux disease) High blood cholesterol HTN (hypertension) Insomnia Migraine Mild obstructive sleep apnea Osteoarthritis of left knee Overweight (BMI 25.0-29.9) Pure hypercholesterolemia Surgical History History of appendectomy History of left knee replacement (~11/2011) History of placement of ear tubes Family History Father Stroke Cardiovascular disease Mother Diabetes Social History Housing: House Alcohol intake: current Alcohol intake frequency: a few times a month Alcohol type: beer Patient Tobacco Use Status: Former Tobacco user e-Cigarette/Vaping Use: Never Used Second Hand Smoke Exposure: Yes service: No Current occupational status: employed Cognitive needs: No Hearing needs: No Vision needs: No Questionnaire PHQ-9 Over the last 2 weeks, how often have you been bothered by any of the following problems? 1. Little interest or pleasure in doing things: nearly every day 2. Feeling down, depressed, or hopeless: not at all 3. Trouble falling or staying asleep, or sleeping too much: more than half the days 4. Feeling tired or having little energy: nearly every day 5. Poor appetite or overeating: not at all 6. Feeling bad about yourself - or that you are a failure or have let yourself or your family down: several days 7. Trouble concentrating on things, such as reading the newspaper or watching television: not at all 8. Moving or speaking so slowly that other people could have noticed. Or the opposite - being so fidgety or restless that you have been moving around a lot more than usual: not at all 9. Thoughts that you would be better off or of hurting yourself in some way: not at all Total score: 9 Depression Screening Interpretation: Positive Depression Screening Follow-up: Existing condition and In treatment 23433 - PHQ-9 Billing: Yes Source: Developed by Drs. Angel Orozco, Zohreh Flores, Rah Hill and colleagues, with an educational john from [employer]. Thrive Questionnaire Date Thrive assessed: 04/12/23 I am a: Patient What is your living situation today?: I have a steady place to live Within the past 12 months, did the food you bought not last and you didn't have the money to get more?: Never true Within the past 12 months, did you worry whether your food would run out before you got money to buy more?: Never true Do you have trouble paying for medicines?: No Do you have trouble getting transportation to medical appointments?: No Do you have trouble paying your heating and electricity bill?: No Do you have trouble taking care of your child, family member or friend?: No Do you have trouble with day-to-day activities such as bathing, preparing meals, shopping, managing finances, etc.?: No Are you currently unemployed and looking for a job?: No Are you interested in more education?: No Please select the resources that you would like help with: None Currently or been in a relationship where the following occur: no concerns reported AUDIT C Alcohol Use Questionnaire (AUDIT-C) 1. How often do you have a drink containing alcohol?: 2-4 times a month 2. How many drinks containing alcohol do you have on a typical day when you are drinking?: 1 or 2 3. How often do you have six or more drinks on one occasion?: Never Total Score: 2 Score Reviewed/Action Taken: Yes EAN-7 AMB Questionnaire EAN-7 Date EAN - 7 assessed: 04/12/23 Feeling nervous, anxious, or on edge: 0 = Not at all Not being able to stop or control worryin = Not at all Worrying too much about different things: 0 = Not at all Trouble relaxin = Not at all Being so restless that it is hard to sit still: 0 = Not at all Becoming easily annoyed or irritable: 0 = Not at all Feeling afraid as if something awful might happen: 0 = Not at all Total EAN-7 score (0-4 normal; 5-9 mild; 10-14 moderate; 15-21 severe): 0 Source: Developed by Drs. Angel Oroczo, Zohreh Flores, Rah Hill and colleagues, with an educational john from [employer]. Review of Systems Const Reports difficulty sleeping (Rx helps), Denies fatigue, Denies fever(s) and Denies headache(s) ENT Denies dysphagia, Denies dizziness, Denies headache(s), Denies neck pain and Denies sore throat Card Denies chest pain, Denies palpitations and Denies dyspnea Resp Denies cough and Denies dyspnea GI Denies abdominal pain, Denies constipation, Denies dysphagia, Denies heartburn, Denies diarrhea, Denies nausea and Denies vomiting Denies dysuria, Denies nocturia and Denies urinary frequency Musc Details: (+) painful cyst at base of right thumb Reports arthralgias (especially over his knees) and Denies neck pain Skin/Breast Denies rash Neuro Denies dizziness, Denies headache(s) and Denies convulsions Endo Denies fatigue and Denies palpitations Physical exam (Primary Care) Vital Signs: Last Vital Signs Pulse 80 04/12/23 16:46 BP 122/78 04/12/23 16:46 Pulse Ox 96 04/12/23 16:46 Oxygen Delivery Method Room Air 04/12/23 16:46 BMI result Body Mass Index 26.9 Tobacco/Smoking Status: Tobacco use Status Tobacco use date assessed 04/12/23 04/12/23 16:53 Patient Tobacco Use Status Former Tobacco user 04/12/23 16:53 e-Cigarette/Vaping Use Never Used 04/12/23 16:53 PHQ-9: PHQ-9 Score PHQ-9: Total score 9 04/12/23 16:53 Depression Screening Interpretation: Positive Depression Screening Follow-up: Existing condition and In treatment Thrive Assessment: Date of Thrive Assessment Date Thrive assessed 04/12/23 04/12/23 16:53 Currently or been in a relationship where the following occur: no concerns reported Const General: no acute distress and alert HENMT Ears: TM's normal bilaterally and EAC's normal Throat: Yes posterior oropharynx normal and Yes tonsils normal (no TP congestion) Neck Neck: Yes no lymphadenopathy and Yes supple Resp Auscultation: clear to auscultation bilaterally, no rales and no wheezes Cardio Rate: regular rate Rhythm: regular rhythm Heart sounds: no murmurs GI Palpation (GI): Soft to palpation and nontender Auscultation: normal bowel sounds Extrem General: Yes no clubbing, cyanosis or edema Left lower extremity: knee Details: tenderness (chronic); no swelling Results Reviewed Results Reviewed: Laboratory Tests 01/21/23 01/21/23 01/21/23 08:56 09:01 09:01 WBC 5.5 Hgb 15.0 Hct 43.4 Plt Count 208 D Sodium 140 Potassium 4.4 Creatinine 0.81 Estimated GFR > 60 Fasting Glucose 97 Calcium 9.4 AST 17 ALT 22 Triglycerides 53 Cholesterol 143 LDL Cholesterol, Calc 78 HDL Cholesterol 55 25-OH Vitamin D Total 33.6 TSH 0.51 Urine pH 6.5 Ur Specific [place] 1.015 Urine Protein Negative Urine Glucose (UA) Negative Urine Blood Negative Phenytoin 01/21/23 09:01 WBC Hgb Hct Plt Count Sodium Potassium Creatinine Estimated GFR Fasting Glucose Calcium AST ALT Triglycerides Cholesterol LDL Cholesterol, Calc HDL Cholesterol 25-OH Vitamin D Total TSH Urine pH Ur Specific [place] Urine Protein Urine Glucose (UA) Urine Blood Phenytoin 8.8 L Assessment and Plan Assessment & Plan (1) Pure hypercholesterolemia: Code(s): E78.00 - Pure hypercholesterolemia, unspecified Plan: Results of his labs done back in January 2023 reviewed and discussed with patient Reinforced low cholesterol diet Continue Atorvastatin 40 mg QD Will recheck labs in 4 months for follow up (2) Benign essential hypertension: Code(s): I10 - Essential (primary) hypertension Plan: Reinforced low sodium diet -? goal is systolic BP of 120 mm or less Continue Lisinopril 5 mg QD (3) Migraine: Code(s): G43.909 - Migraine, unspecified, not intractable, without status migrainosus Qualifiers: Migraine type: unspecified Status migrainosus presence: without status migrainosus Intractability: not intractable Qualified Code(s): G43.909 - Migraine, unspecified, not intractable, without status migrainosus Plan: Stable -? continue Fioricet tablet every 4-6 hours as needed and Sumatriptan 100 mg PRN (4) GERD (gastroesophageal reflux disease): Code(s): K21.9 - Gastro-esophageal reflux disease without esophagitis Qualifiers: Esophagitis presence: without esophagitis Qualified Code(s): K21.9 - Gastro-esophageal reflux disease without esophagitis Plan: Dietary restrictions reinforced Continue Omeprazole 20 mg QD (5) Epilepsy: Code(s): G40.909 - Epilepsy, unspecified, not intractable, without status epilepticus Qualifiers: Epilepsy type: unspecified Intractability: not intractable Status epilepticus: without status epilepticus Qualified Code(s): G40.909 - Epilepsy, unspecified, not intractable, without status epilepticus Plan: Stable with no recent recurrence of seizures Continue Dilantin 200 mg BID Follow-up with neurology as scheduled (6) Osteoarthritis of left knee: Code(s): M17.12 - Unilateral primary osteoarthritis, left knee Qualifiers: Osteoarthritis type: primary Qualified Code(s): M17.12 - Unilateral primary osteoarthritis, left knee Plan: States that his joint pains remain adequately controlled on his current medications - continue Celecoxib 200 mg once a day as needed, Gabapentin 400 mg TID and Tramadol 50 mg 3 to 4 times a day as needed for pain Follow-up with Orthopedics as scheduled (7) Mild obstructive sleep apnea: Comment: Home sleep study done at [facility] [place] showed (+) mild degree of NIKHIL, with episodes mostly occurring in the supine position Patient was advised to lose weight and avoid sleeping on his back as much as possible to help address these issues; will consider repeat surgery with CPAP titration if symptoms do not improve with conservative corrective measures Code(s): G47.33 - Obstructive sleep apnea (adult) (pediatric) Plan: Patient reports no recent problems and his symptoms remain well-controlled, with no intervention needed at this time (8) Constipation: Code(s): K59.00 - Constipation, unspecified Qualifiers: Constipation type: unspecified constipation type Qualified Code(s): K59.00 - Constipation, unspecified Plan: Improved/controlled - encouraged to continue increased oral fluids and dietary fiber Continue Colace 100 mg QD PRN (9) Insomnia: Code(s): G47.00 - Insomnia, unspecified Qualifiers: Insomnia type: primary Qualified Code(s): F51.01 - Primary insomnia Plan: Sleep hygiene reinforced Continue Zolpidem 10 mg daily at bedtime as needed Is also on Mirtazapine, which should help with his sleep (10) Anxiety: Code(s): F41.9 - Anxiety disorder, unspecified Plan: Patient? states that he is doing well with his anxiety Follow-up with mental health counselor at [facility] as scheduled (11) Depression: Code(s): F32.9 - Major depressive disorder, single episode, unspecified Qualifiers: Depression Type: major depressive disorder Major depression recurrence: recurrent Active/Remission status: currently active Major depression episode severity: unspecified Qualified Code(s): F33.9 - Major depressive disorder, recurrent, unspecified Plan: Continue Mirtazapine 30 mg Q HS and Escitalopram 10 mg Q AM Follow-up with Psychiatry as scheduled (12) Overweight (BMI 25.0-29.9): Code(s): E66.3 - Overweight Plan: Reinforced diet/exercise as tolerated/lose weight Plan Follow up in 4 months Orders: Orders Complete Blood Count Auto Diff 4 Months I10 - Essential (primary) hypertension Comprehensive [place]. Panel Fast 4 Months E78.00 - Pure hypercholesterolemia, unspecified Lipid Panel 4 Months E78.00 - Pure hypercholesterolemia, unspecified TSH reflex Free T4 4 Months E78.00 - Pure hypercholesterolemia, unspecified UA CC w/rflx Micro + Cult 4 Months R30.0 - Dysuria Vitamin D 25-OH Total 4 Months E55.9 - Vitamin D deficiency, unspecified Phenytoin Dilantin 4 Months G40.909 - Epilepsy, unspecified, not intractable, without status epilepticus Coding Level of Care Code Est Pt Level 4 (36438) Diagnoses Pure hypercholesterolemia E78.00 Benign essential hypertension I10 Migraine G43.909 Migraine type: unspecified Status migrainosus presence: without status migrainosus Intractability: not intractable GERD (gastroesophageal reflux disease) K21.9 Esophagitis presence: without esophagitis Epilepsy G40.909 Epilepsy type: unspecified Intractability: not intractable Status epilepticus: without status epilepticus Osteoarthritis of left knee M17.12 Osteoarthritis type: primary Mild obstructive sleep apnea G47.33 Constipation K59.00 Constipation type: unspecified constipation type Insomnia F51.01 Insomnia type: primary Anxiety F41.9 Depression F33.9 Depression Type: major depressive disorder Major depression recurrence: recurrent Active/Remission status: currently active Major depression episode severity: unspecified Overweight (BMI 25.0-29.9) E66.3
== END 2023-04-12 17:32 | disposition home or self-care (01) ==
PROVIDERS: PCP Internal Medicine; Visit Provider Internal Medicine
DX: E78.00 Pure hypercholesterolemia, unspecified (principal); I10 Essential (primary) hypertension; G43.909 Migraine, unspecified, not intractable, without status migrainosus; K21.9 Gastro-esophageal reflux disease without esophagitis; G40.909 Epilepsy, unspecified, not intractable, without status epilepticus; M17.12 Unilateral primary osteoarthritis, left knee; G47.33 Obstructive sleep apnea (adult) (pediatric); K59.00 Constipation, unspecified; F51.01 Primary insomnia; F41.9 Anxiety disorder, unspecified; F33.9 Major depressive disorder, recurrent, unspecified; E66.3 Overweight
CPT/HCPCS: 99214

== ENCOUNTER 2023-08-19 06:13 | Outpatient (REF) | payer OTHER, SELFPAY ==
[2023-08-19 06:44] LABS: MANUAL DIFF FLAG NO
[2023-08-19 07:31] LABS: Appearance Urine Clear; Color Urine Yellow; Glucose Urine UA Negative (Negative); Leukocyte Esterase Urine Negative (Negative); Nitrite Urine Negative (Negative); PH 5.5 (5.0-9.0); Urine Blood Negative (Negative); Urine Ketones Negative (Negative); Urine Protein Negative (Neg-Trace)
[2023-08-19 07:50] LABS: Basophils Percent Auto 0.1 % (0-2); Hematocrit 44.5 % (42.0-52.0); Hemoglobin 15.6 g/dl (14.0-18.0); Imm Gran Abs Auto 0.04 X10*3/uL (0.00-0.03); Imm Gran Pct Auto 0.5 % (0.0-0.4); Lymphocytes Absolute Auto 0.8 X10*3/uL (1.2-4.9); Lymphocytes Percent Auto 10.6 % (20-40); Mean Corpuscular HGB Conc 35.1 g/dl (31.0-36.0); Mean Corpuscular Hemoglobin 32.9 pg (27.0-33.0); Mean Corpuscular Volume 93.9 fL (80.0-98.0); Mean Platelet Volume 10.6 fL (9.4-12.4); Monocytes Absolute Auto 0.3 X10*3/uL (0.1-1.2); Monocytes Percent Auto 4.5 % (2-11); Neutrophils Absolute Auto 6.2 x10*3/uL (2.0-8.3); Neutrophils Percent Auto 84.3 % (45-73); Platelet Count 134 X10*3/uL (160-400); Red Blood Count 4.74 X10*6/uL (4.60-5.80); Red Cell Distribution Width 13.1 % (11.0-16.0); White Blood Count 7.4 X10*3/uL (4.8-10.8)
[2023-08-19 07:58] LABS: Phenytoin Dilantin 10.2 ug/mL (10.0-20.0)
[2023-08-19 08:06] LABS: Alanine Aminotransferase 37 U/L (0-40); Albumin Level 4.5 g/dL (3.5-5.0); Alkaline Phosphatase 64 U/L (39-117); Anion Gap 15 (12-20); Aspartate Amino Transferase 18 U/L (5-37); Bilirubin Total 0.7 mg/dL (0.0-1.0); Blood Urea Nitrogen 20 mg/dL (9-16); Calcium 9.5 mg/dL (8.4-10.2); Carbon Dioxide 22 mmol/L (22-29); Chloride 108 mmol/L (96-108); Cholesterol 159 mg/dL (<200); Estimated Glomerular Filt Rate > 60; Glucose Fasting 102 mg/dL (60-99); HDL Cholesterol 54 mg/dL (>40); LDL Cholesterol Calculated 87 mg/dL (<100); Potassium 3.9 mmol/L (3.3-5.1); Sodium 141 mmol/L (135-145); Total Protein 6.8 g/dL (6.5-8.0); Triglycerides 90 mg/dL (<150)
[2023-08-19 08:24] LABS: Vitamin D 25-OH Total 20.6 ng/mL (>30)
== END 2023-08-19 06:14 | disposition home or self-care (01) ==
LOC: HO.LAB 06:13
PROVIDERS: PCP Internal Medicine; Visit Provider Internal Medicine
DX: I10 Essential (primary) hypertension (principal); E78.00 Pure hypercholesterolemia, unspecified; R30.0 Dysuria; E55.9 Vitamin D deficiency, unspecified; G40.909 Epilepsy, unspecified, not intractable, without status epilepticus; Z79.899 Other long term (current) drug therapy
CPT/HCPCS: 36415; 80053; 80061; 80185; 81003; 82306; 84443; 85025

== ENCOUNTER 2023-08-19 09:10 | Outpatient (AMB) | payer OTHER, SELFPAY ==
[2023-08-19 09:16] VITALS: BP 106/68; PULSE 82; O2SAT 97; BMI 27.2
--- NOTE | 2023-08-19 09:16 | MHC.PC.OV ---
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 Accompanied by: Self / Same As Patient Allergies No Known Allergies Allergy (Mild, Verified 08/19/23 09:55) N/A Medication List - Last Reconciled 08/19/23 by Moises Pierre MD atorvastatin 40 mg PO DAILY kzokipeapc-atcgmuddtzaro-ufhp 50-325-40 mg 1 tab PO Q6H PRN celecoxib 200 mg PO DAILY PRN 90 days docusate sodium 100 mg PO DAILY PRN escitalopram oxalate 10 mg PO DAILY gabapentin 400 mg PO TID 90 days lisinopril 5 mg PO DAILY mirtazapine 30 mg PO BEDTIME omeprazole 20 mg PO DAILY phenytoin sodium extended 200 mg (2 x 100 mg) PO BID sildenafil 50 mg PO DAILY PRN tramadol 50 mg PO Q6H PRN 90 days zolpidem 10 mg PO BEDTIME PRN 30 days Tobacco use date assessed: 08/19/23 Dental Screening Dental Screen Date: 08/19/23 Did you have a dental visit in the last 12 months?: No Did you have a dental problem in the last 6 months where you did not have access to dental care?: No Was dental information given to patient?: No HPI OA, hyperlipidemia, migraine, epilepsy HPI Details Patient comes in today for his follow up visit States that he feels okay He denies any headaches or dizziness Denies any chest pains, no SOB No nausea/vomiting, no abdominal pain No change in bowel habits notes He denies any recent seizures Needs his Mirtazapine Rx refilled - needs this sent to [facility] Had his follow up labs done earlier today - to discuss his results Would also like to get his flu shot today [facility] Medical History Overweight (BMI 25.0-29.9) Depression Anxiety Insomnia Constipation Mild obstructive sleep apnea Epilepsy GERD (gastroesophageal reflux disease) Osteoarthritis of left knee Migraine Pure hypercholesterolemia Benign essential hypertension HTN (hypertension) High blood cholesterol Epilepsia Surgical History History of placement of ear tubes History of appendectomy History of left knee replacement (~11/2011) Family History Father Stroke Cardiovascular disease Mother Diabetes Social History Housing: House Alcohol intake: current Alcohol intake frequency: a few times a month Alcohol type: beer Patient Tobacco Use Status: Former Tobacco user e-Cigarette/Vaping Use: Never Used Second Hand Smoke Exposure: Yes service: No Current occupational status: employed Cognitive needs: No Hearing needs: No Vision needs: No Questionnaire PHQ-9 Over the last 2 weeks, how often have you been bothered by any of the following problems? 1. Little interest or pleasure in doing things: nearly every day 2. Feeling down, depressed, or hopeless: not at all 3. Trouble falling or staying asleep, or sleeping too much: more than half the days 4. Feeling tired or having little energy: nearly every day 5. Poor appetite or overeating: not at all 6. Feeling bad about yourself - or that you are a failure or have let yourself or your family down: several days 7. Trouble concentrating on things, such as reading the newspaper or watching television: not at all 8. Moving or speaking so slowly that other people could have noticed. Or the opposite - being so fidgety or restless that you have been moving around a lot more than usual: not at all 9. Thoughts that you would be better off or of hurting yourself in some way: not at all Total score: 9 Depression Screening Interpretation: Positive Depression Screening Follow-up: Existing condition and In treatment Depression Screening Done: Yes 10479 - PHQ-9 Billing: Yes Source: Developed by Drs. Angel Orozco, Zohreh Flores, Rah Hill and colleagues, with an educational john from [employer]. Thrive Questionnaire Date Thrive assessed: 08/19/23 I am a: Patient What is your living situation today?: I have a steady place to live Within the past 12 months, did the food you bought not last and you didn't have the money to get more?: Never true Within the past 12 months, did you worry whether your food would run out before you got money to buy more?: Never true Do you have trouble paying for medicines?: No Do you have trouble getting transportation to medical appointments?: No Do you have trouble paying your heating and electricity bill?: No Do you have trouble taking care of your child, family member or friend?: No Do you have trouble with day-to-day activities such as bathing, preparing meals, shopping, managing finances, etc.?: No Are you currently unemployed and looking for a job?: No Are you interested in more education?: No Please select the resources that you would like help with: None Currently or been in a relationship where the following occur: no concerns reported AUDIT C Alcohol Use Questionnaire (AUDIT-C) 1. How often do you have a drink containing alcohol?: 2-4 times a month 2. How many drinks containing alcohol do you have on a typical day when you are drinking?: 1 or 2 3. How often do you have six or more drinks on one occasion?: Never Total Score: 2 Score Reviewed/Action Taken: Yes EAN-7 AMB Questionnaire EAN-7 Date EAN - 7 assessed: 08/19/23 Feeling nervous, anxious, or on edge: 0 = Not at all Not being able to stop or control worryin = Not at all Worrying too much about different things: 0 = Not at all Trouble relaxin = Not at all Being so restless that it is hard to sit still: 0 = Not at all Becoming easily annoyed or irritable: 0 = Not at all Feeling afraid as if something awful might happen: 0 = Not at all Total EAN-7 score (0-4 normal; 5-9 mild; 10-14 moderate; 15-21 severe): 0 Source: Developed by Drs. Angel Orozco, Zohreh Flores, Rah Hill and colleagues, with an educational john from [employer]. Review of Systems Const Reports difficulty sleeping (Rx helps), Denies fatigue, Denies fever(s) and Denies headache(s) ENT Denies dysphagia, Denies dizziness, Denies otalgia, Denies headache(s), Denies neck pain, Denies odynophagia and Denies sore throat Card Denies chest pain, Denies palpitations and Denies dyspnea Resp Denies cough and Denies dyspnea GI Denies abdominal pain, Denies constipation, Denies dysphagia, Denies heartburn, Denies diarrhea, Denies nausea, Denies odynophagia and Denies vomiting Denies dysuria, Denies nocturia and Denies urinary frequency Musc Details: (+) painful cyst at base of right thumb Reports arthralgias (especially over his knees) and Denies neck pain Skin/Breast Denies rash Neuro Denies dizziness, Denies headache(s) and Denies convulsions Endo Denies fatigue and Denies palpitations Physical exam (Primary Care) Vital Signs: Last Vital Signs Pulse 82 08/19/23 09:16 BP 106/68 08/19/23 09:16 Pulse Ox 97 08/19/23 09:16 Oxygen Delivery Method Room Air 08/19/23 09:16 BMI result Body Mass Index 27.2 Tobacco/Smoking Status: Tobacco use Status Tobacco use date assessed 08/19/23 08/19/23 09:19 Patient Tobacco Use Status Former Tobacco user 08/19/23 09:19 e-Cigarette/Vaping Use Never Used 08/19/23 09:19 PHQ-9: PHQ-9 Score PHQ-9: Total score 9 08/19/23 09:19 Depression Screening Interpretation: Positive Depression Screening Follow-up: Existing condition and In treatment Thrive Assessment: Date of Thrive Assessment Date Thrive assessed 08/19/23 08/19/23 09:19 Currently or been in a relationship where the following occur: no concerns reported Const General: no acute distress and alert HENMT Ears: TM's normal bilaterally and EAC's normal Throat: Yes posterior oropharynx normal and Yes tonsils normal (no TP congestion) Neck Neck: Yes no lymphadenopathy and Yes supple Resp Auscultation: clear to auscultation bilaterally, no rales and no wheezes Cardio Rate: regular rate Rhythm: regular rhythm Heart sounds: no murmurs GI Palpation (GI): Soft to palpation and nontender Auscultation: normal bowel sounds Skin Rashes: no rashes Extrem General: Yes no clubbing, cyanosis or edema Left lower extremity: knee Details: tenderness (chronic); no swelling Office Procedures Flu Questionnaire Does the patient have a severe egg allergy?: No Does the patient have severe life threatening allergies?: No Does the patient have a fever or illness today?: No Has the patient ever had Guillain-[place] Syndrome?: No Has the patient ever had any past reaction to a flu shot?: No Immunizations flu vacc [id number] 6mos up(PF) 60 mcg(15 mcgx4)/0.5 mL IM syringe Performing Provider: Moises Pierre MD Performing Location: [facility] Administered by: Jose E Mcclure on 08/19/23 09:28 Dose Route Admin Location Dispensed Lot Number Expiration Date NDC Mechanical Project Manager 0.5 mL IM Left Deltoid 0.5 mL [id number] 03/12/24 01343-424-09 [employer] VIS Given Date VIS Provided VIS Publication Date 08/19/23 Single Vaccine 21 Eligibility Eligibility Date Funding Source Not [facility] Eligible 08/19/23 Private Results Reviewed Results Reviewed: Laboratory Tests 08/19/23 08/19/23 08/19/23 06:39 06:39 06:41 WBC 7.4 Hgb 15.6 Hct 44.5 Plt Count 134 L D Sodium 141 Potassium 3.9 Creatinine 0.87 Estimated GFR Fasting Glucose 102 H Calcium 9.5 AST 18 ALT 37 Triglycerides 90 Cholesterol 159 LDL Cholesterol, Calc 87 HDL Cholesterol 54 25-OH Vitamin D Total 20.6 L TSH 1.20 Ur Specific [place] 1.020 Urine Protein Negative Urine Glucose (UA) Negative Urine Blood Negative Phenytoin 08/19/23 08/19/23 06:41 06:41 WBC Hgb Hct Plt Count Sodium Potassium Creatinine Estimated GFR > 60 Fasting Glucose Calcium AST ALT Triglycerides Cholesterol LDL Cholesterol, Calc HDL Cholesterol 25-OH Vitamin D Total TSH Ur Specific [place] Urine Protein Urine Glucose (UA) Urine Blood Phenytoin 10.2 Assessment and Plan Assessment & Plan (1) Pure hypercholesterolemia: Code(s): E78.00 - Pure hypercholesterolemia, unspecified Plan: Results of his labs done earlier this morning reviewed and discussed with patient Reinforced low cholesterol diet Continue Atorvastatin 40 mg QD Will recheck his labs and fasting lipids in 4 months for follow up (2) Benign essential hypertension: Code(s): I10 - Essential (primary) hypertension Plan: Reinforced low sodium diet -? goal is systolic BP of 120 mm or less Continue Lisinopril 5 mg QD (3) Migraine: Code(s): G43.909 - Migraine, unspecified, not intractable, without status migrainosus Qualifiers: Migraine type: unspecified Status migrainosus presence: without status migrainosus Intractability: not intractable Qualified Code(s): G43.909 - Migraine, unspecified, not intractable, without status migrainosus Plan: Stable -? continue Fioricet tablet every 4-6 hours as needed and Sumatriptan 100 mg PRN (4) GERD (gastroesophageal reflux disease): Code(s): K21.9 - Gastro-esophageal reflux disease without esophagitis Qualifiers: Esophagitis presence: without esophagitis Qualified Code(s): K21.9 - Gastro-esophageal reflux disease without esophagitis Plan: Dietary restrictions reinforced Continue Omeprazole 20 mg QD (5) Epilepsy: Code(s): G40.909 - Epilepsy, unspecified, not intractable, without status epilepticus Qualifiers: Epilepsy type: unspecified Intractability: not intractable Status epilepticus: without status epilepticus Qualified Code(s): G40.909 - Epilepsy, unspecified, not intractable, without status epilepticus Plan: Stable with no recent recurrence of seizures Continue Dilantin 200 mg BID Follow-up with neurology as scheduled (6) Osteoarthritis of left knee: Code(s): M17.12 - Unilateral primary osteoarthritis, left knee Qualifiers: Osteoarthritis type: primary Qualified Code(s): M17.12 - Unilateral primary osteoarthritis, left knee Plan: States that his joint pains were adequately controlled on his current medications until the weather turned colder a few weeks ago - has been experiencing increased pain and aching, especially in his knees, often in the morning lately Continue Celecoxib 200 mg once a day as needed, Gabapentin 400 mg TID and Tramadol 50 mg 3 to 4 times a day as needed for pain Follow-up with Orthopedics as scheduled (7) Mild obstructive sleep apnea: Comment: Home sleep study done at [facility] [place] on 06/24/2016 showed (+) mild degree of NIKHIL, with episodes mostly occurring in the supine position Patient was advised to lose weight and avoid sleeping on his back as much as possible to help address these issues; will consider repeat surgery with CPAP titration if symptoms do not improve with conservative corrective measures Code(s): G47.33 - Obstructive sleep apnea (adult) (pediatric) Plan: Patient reports no recent problems and his symptoms remain well-controlled, with no intervention needed at this time (8) Constipation: Code(s): K59.00 - Constipation, unspecified Qualifiers: Constipation type: unspecified constipation type Qualified Code(s): K59.00 - Constipation, unspecified Plan: Improved/controlled - encouraged to continue increased oral fluids and dietary fiber Continue Colace 100 mg QD PRN (9) Insomnia: Code(s): G47.00 - Insomnia, unspecified Qualifiers: Insomnia type: primary Qualified Code(s): F51.01 - Primary insomnia Plan: Sleep hygiene reinforced Continue Zolpidem 10 mg daily at bedtime as needed Is also on Mirtazapine, which should help with his sleep (10) Anxiety: Code(s): F41.9 - Anxiety disorder, unspecified Plan: Patient? states that he is doing well with his anxiety Follow-up with mental health counselor at [facility] as scheduled (11) Depression: Code(s): F32.9 - Major depressive disorder, single episode, unspecified Qualifiers: Depression Type: major depressive disorder Major depression recurrence: recurrent Active/Remission status: currently active Major depression episode severity: unspecified Qualified Code(s): F33.9 - Major depressive disorder, recurrent, unspecified Plan: Continue Mirtazapine 30 mg Q HS and Escitalopram 10 mg Q AM Follow-up with Psychiatry as scheduled (12) Overweight (BMI 25.0-29.9): Code(s): E66.3 - Overweight Plan: Reinforced diet/exercise as tolerated/lose weight Plan Flu vaccine given today Follow up in 4 months Orders: Orders Comprehensive [place]. Panel Fast 4 Months E78.00 - Pure hypercholesterolemia, unspecified Lipid Panel 4 Months E78.00 - Pure hypercholesterolemia, unspecified UA CC w/rflx Micro + Cult 4 Months R30.0 - Dysuria Influenza [id number] Immunization Today Z23 - Encounter for immunization Complete Blood Count Auto Diff 4 Months I10 - Essential (primary) hypertension TSH reflex Free T4 4 Months E78.00 - Pure hypercholesterolemia, unspecified Vitamin D 25-OH Total 4 Months E55.9 - Vitamin D deficiency, unspecified Phenytoin Dilantin 4 Months G40.909 - Epilepsy, unspecified, not intractable, without status epilepticus Medications: Changed From mirtazapine 30 mg PO BEDTIME 90 tabs 3RF F33.9 - Major depressive disorder, recurrent, unspecified To mirtazapine 30 mg PO BEDTIME 90 tabs 3RF 90 days F33.9 - Major depressive disorder, recurrent, unspecified Coding Level of Care Code Est Pt Level 4 (57797) Diagnoses Pure hypercholesterolemia E78.00 Benign essential hypertension I10 Migraine without status migrainosus, not intractable, unspecified migraine type G43.909 Migraine type: unspecified Status migrainosus presence: without status migrainosus Intractability: not intractable Gastroesophageal reflux disease without esophagitis K21.9 Esophagitis presence: without esophagitis Nonintractable epilepsy without status epilepticus, unspecified epilepsy type G40.909 Epilepsy type: unspecified Intractability: not intractable Status epilepticus: without status epilepticus Primary osteoarthritis of left knee M17.12 Osteoarthritis type: primary Mild obstructive sleep apnea G47.33 Constipation, unspecified constipation type K59.00 Constipation type: unspecified constipation type Primary insomnia F51.01 Insomnia type: primary Anxiety F41.9 Episode of recurrent major depressive disorder, unspecified depression episode severity F33.9 Depression Type: major depressive disorder Major depression recurrence: recurrent Active/Remission status: currently active Major depression episode severity: unspecified Overweight (BMI 25.0-29.9) E66.3
== END 2023-08-19 10:11 | disposition home or self-care (01) ==
PROVIDERS: PCP Internal Medicine; Visit Provider Internal Medicine
DX: Z23 Encounter for immunization (principal)
CPT/HCPCS: 90471; 90686; 99214

== ENCOUNTER 2023-12-18 07:55 | Outpatient (REF) | payer OTHER, SELFPAY ==
[2023-12-18 08:43] LABS: MANUAL DIFF FLAG NO
[2023-12-18 09:27] LABS: Basophils Percent Auto 0.3 % (0-2); Hematocrit 43.5 % (42.0-52.0); Hemoglobin 15.5 g/dl (14.0-18.0); Imm Gran Abs Auto 0.02 X10*3/uL (0.00-0.03); Imm Gran Pct Auto 0.7 % (0.0-0.4); Lymphocytes Absolute Auto 0.7 X10*3/uL (1.2-4.9); Lymphocytes Percent Auto 23.3 % (20-40); Mean Corpuscular HGB Conc 35.6 g/dl (31.0-36.0); Mean Corpuscular Hemoglobin 32.7 pg (27.0-33.0); Mean Corpuscular Volume 91.8 fL (80.0-98.0); Mean Platelet Volume 10.5 fL (9.4-12.4); Monocytes Absolute Auto 0.3 X10*3/uL (0.1-1.2); Monocytes Percent Auto 8.3 % (2-11); Neutrophils Percent Auto 67.4 % (45-73); Platelet Count 145 X10*3/uL (160-400); Red Blood Count 4.74 X10*6/uL (4.60-5.80); Red Cell Distribution Width 13.6 % (11.0-16.0)
[2023-12-18 10:12] LABS: Appearance Urine Clear; Color Urine Yellow; Glucose Urine UA Negative (Negative); Leukocyte Esterase Urine Negative (Negative); Nitrite Urine Negative (Negative); Urine Blood Negative (Negative); Urine Ketones Negative (Negative); Urine Protein Negative (Neg-Trace)
[2023-12-18 10:18] LABS: Alanine Aminotransferase 32 U/L (0-40); Albumin Level 4.4 g/dL (3.5-5.0); Alkaline Phosphatase 66 U/L (39-117); Anion Gap 12 (12-20); Aspartate Amino Transferase 23 U/L (5-37); Bilirubin Total 0.4 mg/dL (0.0-1.0); Blood Urea Nitrogen 22 mg/dL (9-16); Calcium 9.5 mg/dL (8.4-10.2); Carbon Dioxide 23 mmol/L (22-29); Chloride 109 mmol/L (96-108); Cholesterol 161 mg/dL (<200); Estimated Glomerular Filt Rate > 60; Glucose Fasting 93 mg/dL (60-99); HDL Cholesterol 57 mg/dL (>40); LDL Cholesterol Calculated 87 mg/dL (<100); Potassium 4.1 mmol/L (3.3-5.1); Sodium 140 mmol/L (135-145); Total Protein 6.6 g/dL (6.5-8.0); Triglycerides 86 mg/dL (<150)
[2023-12-18 10:23] LABS: Vitamin D 25-OH Total 40.8 ng/mL (>30)
[2023-12-18 10:28] LABS: Phenytoin Dilantin 7.4 ug/mL (10.0-20.0)
== END 2023-12-18 07:56 | disposition home or self-care (01) ==
LOC: HO.LAB 07:55
PROVIDERS: PCP Internal Medicine; Visit Provider Internal Medicine
DX: I10 Essential (primary) hypertension (principal); E78.00 Pure hypercholesterolemia, unspecified; R30.0 Dysuria; E55.9 Vitamin D deficiency, unspecified; G40.909 Epilepsy, unspecified, not intractable, without status epilepticus
CPT/HCPCS: 36415; 80053; 80061; 80185; 81003; 82306; 84443; 85025

== ENCOUNTER 2023-12-20 09:52 | Outpatient (AMB) | payer OTHER, SELFPAY ==
--- NOTE | 2023-12-20 10:10 | A.OFFPC_ITS ---
Vital Signs 12/20/23 10:11 Height 5 ft 8 in Weight 181 lb 4 oz BMI 27.6 BP 110/68 Blood Pressure Location Lt brachial Position Sitting Pulse 78 Pulse Source Pulse Oximeter Pulse Oximetry (%) 97 Oxygen Delivery Method Room Air Intake Visit Reasons: hyperlipidemia, GERD, OA, epilepsy, COPD Intake Note: Patient is here today for a physical. 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 Accompanied by: Self / Same As Patient Allergies No Known Allergies Allergy (Mild, Verified 12/20/23 11:09) N/A Medication List - Last Reconciled 12/20/23 by Moises Pierre MD atorvastatin 40 mg PO DAILY itzdueambq-twdnzsieqdrts-qgsq 50-325-40 mg 1 tab PO Q6H PRN celecoxib 200 mg PO DAILY PRN 90 days docusate sodium 100 mg PO DAILY PRN escitalopram oxalate 10 mg PO DAILY gabapentin 400 mg PO TID 90 days lisinopril 5 mg PO DAILY mirtazapine 30 mg PO BEDTIME 90 days omeprazole 20 mg PO DAILY phenytoin sodium extended 200 mg (2 x 100 mg) PO BID sildenafil 50 mg PO DAILY PRN tramadol 50 mg PO Q6H PRN 90 days zolpidem 10 mg PO BEDTIME PRN 30 days Tobacco use date assessed: 12/20/23 Dental Screening Dental Screen Date: 12/20/23 Did you have a dental visit in the last 12 months?: No Did you have a dental problem in the last 6 months where you did not have access to dental care?: No Was dental information given to patient?: Patient has dentist HPI hyperlipidemia, GERD, OA, epilepsy, COPD HPI Details Patient comes in today for his annual physical examination States that he feels okay He denies any headaches or dizziness Denies any chest pains, no SOB No nausea/vomiting, no abdominal pain No change in bowel habits notes He denies any acute urinary symptoms He also denies any recent seizures States that his chronic joint pains remain adequately controlled on his current Rx Needs several of his Rx refilled today Had his follow up labs done a couple of days ago - to discuss his results He last had his screening colonoscopy done on 12/08/[address] Calderón and he is due for repeat colonoscopy this year He is scheduled to see Dr. Calderón for follow up at the end of next month after which he will be scheduled for his repeat colonoscopy PFSH Medical History Overweight (BMI 25.0-29.9) Depression Anxiety Insomnia Constipation Mild obstructive sleep apnea Epilepsy GERD (gastroesophageal reflux disease) Osteoarthritis of left knee Migraine Pure hypercholesterolemia Benign essential hypertension HTN (hypertension) High blood cholesterol Epilepsia Surgical History (Updated 12/20/23 @ 11:38 by Moises Pierre MD) Hx of colonoscopy History of placement of ear tubes History of appendectomy History of left knee replacement (~11/2011) Family History Father Stroke Cardiovascular disease Mother Diabetes Social History Housing: House Alcohol intake: current Alcohol intake frequency: a few times a month Alcohol type: beer Patient Tobacco Use Status: Former Tobacco user e-Cigarette/Vaping Use: Never Used Second Hand Smoke Exposure: Yes service: No Current occupational status: employed Cognitive needs: No Hearing needs: No Vision needs: No Questionnaire PHQ-9 Over the last 2 weeks, how often have you been bothered by any of the following problems? 1. Little interest or pleasure in doing things: several days 2. Feeling down, depressed, or hopeless: nearly every day 3. Trouble falling or staying asleep, or sleeping too much: nearly every day 4. Feeling tired or having little energy: nearly every day 5. Poor appetite or overeating: several days 6. Feeling bad about yourself - or that you are a failure or have let yourself or your family down: nearly every day 7. Trouble concentrating on things, such as reading the newspaper or watching television: several days 8. Moving or speaking so slowly that other people could have noticed. Or the opposite - being so fidgety or restless that you have been moving around a lot more than usual: several days 9. Thoughts that you would be better off or of hurting yourself in some way: several days Total score: 17 Depression Screening Interpretation: Positive Depression Screening Follow-up: Existing condition and In treatment Depression Screening Done: Yes 48907 - PHQ-9 Billing: Yes Source: Developed by Drs. Angel Orozco, Zohreh B.Rah Guzman and colleagues, with an educational john from [employer]. Thrive Questionnaire Date Thrive assessed: 12/20/23 I am a: Patient What is your living situation today?: I have a steady place to live Within the past 12 months, did the food you bought not last and you didn't have the money to get more?: Never true Within the past 12 months, did you worry whether your food would run out before you got money to buy more?: Never true Do you have trouble paying for medicines?: No Do you have trouble getting transportation to medical appointments?: No Do you have trouble paying your heating and electricity bill?: No Do you have trouble taking care of your child, family member or friend?: No Do you have trouble with day-to-day activities such as bathing, preparing meals, shopping, managing finances, etc.?: No Are you currently unemployed and looking for a job?: No Are you interested in more education?: No Please select the resources that you would like help with: None Currently or been in a relationship where the following occur: no concerns reported THRIVE Score: 0 AUDIT C Alcohol Use Questionnaire (AUDIT-C) 1. How often do you have a drink containing alcohol?: 2-3 times a week 2. How many drinks containing alcohol do you have on a typical day when you are drinking?: 5 or 6 3. How often do you have six or more drinks on one occasion?: Monthly Total Score: 7 Score Reviewed/Action Taken: Yes EAN-7 AMB Questionnaire EAN-7 Date EAN - 7 assessed: 12/20/23 Feeling nervous, anxious, or on edge: 0 = Not at all Not being able to stop or control worryin = Not at all Worrying too much about different things: 0 = Not at all Trouble relaxin = Not at all Being so restless that it is hard to sit still: 0 = Not at all Becoming easily annoyed or irritable: 0 = Not at all Feeling afraid as if something awful might happen: 0 = Not at all Total EAN-7 score (0-4 normal; 5-9 mild; 10-14 moderate; 15-21 severe): 0 Source: Developed by Drs. Angel Orozco, Rah Patton and colleagues, with an educational john from [employer]. EAN-7 Assessment Billing EAN-7 Assessment Tool: EAN-7 Assessment 77251 Review of Systems Const Reports difficulty sleeping (Rx helps), Denies fatigue, Denies fever(s) and Denies headache(s) Eyes Denies blurry vision, Denies change in vision, Denies irritation and Denies itchy eyes ENT Denies dysphagia, Denies dizziness, Denies otalgia, Denies headache(s), Denies neck pain, Denies odynophagia and Denies sore throat Card Denies chest pain, Denies palpitations and Denies dyspnea Resp Denies cough, Denies dyspnea and Denies wheezing GI Denies abdominal pain, Denies constipation, Denies dysphagia, Denies heartburn, Denies diarrhea, Denies nausea, Denies odynophagia and Denies vomiting Denies dysuria, Denies nocturia and Denies urinary frequency Musc Reports arthralgias (especially over his knees) and Denies neck pain Skin/Breast Denies lesions and Denies rash Neuro Denies dizziness, Denies headache(s) and Denies convulsions Endo Denies fatigue and Denies palpitations Aller/Immun Denies itchy eyes and Denies wheezing Physical exam (Primary Care) Vital Signs: Last Vital Signs Pulse 78 12/20/23 10:11 BP 110/68 12/20/23 10:11 Pulse Ox 97 12/20/23 10:11 Oxygen Delivery Method Room Air 12/20/23 10:11 BMI result Body Mass Index 27.6 Tobacco/Smoking Status: Tobacco use Status Tobacco use date assessed 12/20/23 12/20/23 10:22 Patient Tobacco Use Status Former Tobacco user 12/20/23 10:10 e-Cigarette/Vaping Use Never Used 12/20/23 10:10 PHQ-9: PHQ-9 Score PHQ-9: Total score 17 12/20/23 10:22 Depression Screening Interpretation: Positive Depression Screening Follow-up: Existing condition and In treatment Thrive Assessment: Date of Thrive Assessment Date Thrive assessed 12/20/23 12/20/23 10:15 Currently or been in a relationship where the following occur: no concerns reported Const General: no acute distress and alert Orientation/consciousness: patient oriented x3 HENMT Head: Yes normocephalic and Yes atraumatic Ears: TM's normal bilaterally and EAC's normal General nose exam: No nasal discharge present Face and sinus: Yes normal facial exam and Yes sinuses nontender Teeth and gingiva: dentition normal Throat: Yes posterior oropharynx normal and Yes tonsils normal (no TP congestion) Eyes Eyelids: Yes eyelids normal Conjunctivae: conjunctivae normal Pupils: Equal, round and reactive pupils present EOM: EOMs intact bilaterally Neck Neck: Yes no lymphadenopathy and Yes supple Thyroid: Thyroid normal Resp Auscultation: clear to auscultation bilaterally, no rales and no wheezes Cardio Rate: regular rate Rhythm: regular rhythm Heart sounds: no murmurs GI Palpation (GI): Soft to palpation and nontender Auscultation: normal bowel sounds General: Yes no CVA tenderness Back/Spine/Pelvis Back: no CVA tenderness Thoracic/Lumbar Spine: thoracic and lumbar spine normal to inspection Skin Lesions: no lesions Rashes: no rashes Neuro General: patient oriented x3, moves all extremities, no focal motor deficits and CN's II-XI intact bilaterally Cranial nerves: Yes Equal, round and reactive pupils present Cognition (Neuro): normal cognition Gait exam (Neuro): Normal gait present Extrem General: Yes no clubbing, cyanosis or edema Left lower extremity: knee Details: tenderness (chronic); no swelling Results Reviewed Results Reviewed: Laboratory Tests 12/18/23 12/18/23 07:59 08:42 WBC 3.0 L Hgb 15.5 Hct 43.5 Plt Count 145 L Sodium 140 Potassium 4.1 Creatinine 0.83 Estimated GFR > 60 Fasting Glucose 93 Calcium 9.5 AST 23 ALT 32 Triglycerides 86 Cholesterol 161 LDL Cholesterol, Calc 87 HDL Cholesterol 57 25-OH Vitamin D Total 40.8 TSH 0.90 Ur Specific [place] 1.020 Urine Protein Negative Urine Glucose (UA) Negative Urine Blood Negative Urine Nitrite Negative Ur Leukocyte Esterase Negative Phenytoin 7.4 L* Assessment and Plan Assessment & Plan (1) Annual physical exam: Code(s): Z00.00 - Encounter for general adult medical examination without abnormal findings Plan: Results of his labs done a couple of days ago reviewed and discussed with patient He is due for his repeat colonoscopy this year and is scheduled to see Dr. Calderón next month for this (2) Pure hypercholesterolemia: Code(s): E78.00 - Pure hypercholesterolemia, unspecified Plan: Advised that his cholesterol levels remain well-controlled on his recent labs Reinforced low cholesterol diet Continue Atorvastatin 40 mg QD Will recheck his labs and fasting lipids in 4 months for follow up (3) Benign essential hypertension: Code(s): I10 - Essential (primary) hypertension Plan: Reinforced low sodium diet -? goal is systolic BP of 120 mm or less Continue Lisinopril 5 mg QD (4) Migraine: Code(s): G43.909 - Migraine, unspecified, not intractable, without status migrainosus Qualifiers: Migraine type: unspecified Status migrainosus presence: without status migrainosus Intractability: not intractable Qualified Code(s): G43.909 - Migraine, unspecified, not intractable, without status migrainosus Plan: Stable -? continue Fioricet tablet every 4-6 hours as needed and Sumatriptan 100 mg PRN (5) GERD (gastroesophageal reflux disease): Code(s): K21.9 - Gastro-esophageal reflux disease without esophagitis Qualifiers: Esophagitis presence: without esophagitis Qualified Code(s): K21.9 - Gastro-esophageal reflux disease without esophagitis Plan: Dietary restrictions reinforced Continue Omeprazole 20 mg QD (6) Epilepsy: Code(s): G40.909 - Epilepsy, unspecified, not intractable, without status epilepticus Qualifiers: Epilepsy type: unspecified Intractability: not intractable Status epilepticus: without status epilepticus Qualified Code(s): G40.909 - Epilepsy, unspecified, not intractable, without status epilepticus Plan: Stable with no recent recurrence of seizures Continue Dilantin 200 mg BID Follow-up with neurology as scheduled (7) Osteoarthritis of left knee: Code(s): M17.12 - Unilateral primary osteoarthritis, left knee Qualifiers: Osteoarthritis type: primary Qualified Code(s): M17.12 - Unilateral primary osteoarthritis, left knee Plan: States that his joint pains remain adequately controlled on his current medications Continue Celecoxib 200 mg once a day as needed, Gabapentin 400 mg TID and Tramadol 50 mg 3 to 4 times a day as needed for pain Follow-up with Orthopedics as scheduled (8) Mild obstructive sleep apnea: Comment: [place] [facility] [place] showed (+) mild degree of NIKHIL, with episodes mostly occurring in the supine position Patient was advised to lose weight and avoid sleeping on his back as much as possible to help address these issues; will consider repeat surgery with CPAP titration if symptoms do not improve with conservative corrective measures Code(s): G47.33 - Obstructive sleep apnea (adult) (pediatric) Plan: Patient reports no recent problems and his symptoms remain well-controlled, with no intervention needed at this time (9) Constipation: Code(s): K59.00 - Constipation, unspecified Qualifiers: Constipation type: unspecified constipation type Qualified Code(s): K59.00 - Constipation, unspecified Plan: Improved/controlled - encouraged to continue increased oral fluids and dietary fiber Continue Colace 100 mg QD PRN (10) Insomnia: Code(s): G47.00 - Insomnia, unspecified Qualifiers: Insomnia type: primary Qualified Code(s): F51.01 - Primary insomnia Plan: Sleep hygiene reinforced Continue Zolpidem 10 mg daily at bedtime as needed Is also on Mirtazapine, which should help with his sleep (11) Anxiety: Code(s): F41.9 - Anxiety disorder, unspecified Plan: Patient? states that he is doing well with his anxiety Follow-up with mental health counselor at [facility] as scheduled (12) Depression: Code(s): F32.9 - Major depressive disorder, single episode, unspecified Qualifiers: Depression Type: major depressive disorder Major depression recurrence: recurrent Active/Remission status: currently active Major depression episode severity: unspecified Qualified Code(s): F33.9 - Major depressive disorder, recurrent, unspecified Plan: Continue Mirtazapine 30 mg Q HS and Escitalopram 10 mg Q AM Follow-up with Psychiatry as scheduled (13) Overweight (BMI 25.0-29.9): Code(s): E66.3 - Overweight Plan: Reinforced diet/exercise as tolerated/lose weight Plan Follow up in 4 months Orders: Orders TSH reflex Free T4 4 Months E78.00 - Pure hypercholesterolemia, unspecified, Z00.00 - Encounter for general adult medical examination without abnormal findings Phenytoin Dilantin 4 Months G40.909 - Epilepsy, unspecified, not intractable, without status epilepticus, Z00.00 - Encounter for general adult medical examin ation without abnormal findings Vitamin D 25-OH Total 4 Months E55.9 - Vitamin D deficiency, unspecified, Z00.00 - Encounter for general adult medical examination without abnormal findings Prostate Specific Antigen 4 Months N40.0 - Benign prostatic hyperplasia without lower urinary tract symptoms, Z00.00 - Encounter for general adult medical ex amination without abnormal findings Complete Blood Count Auto Diff 4 Months D64.9 - Anemia, unspecified, Z00.00 - Encounter for general adult medical examination without abnormal findings Comprehensive [place]. Panel Fast 4 Months E78.00 - Pure hypercholesterolemia, unspecified, Z00.00 - Encounter for general adult medical examination without abnormal findings Lipid Panel 4 Months E78.00 - Pure hypercholesterolemia, unspecified, Z00.00 - Encounter for general adult medical examination without abnormal findings UA CC w/rflx Micro + Cult 4 Months R30.0 - Dysuria, Z00.00 - Encounter for general adult medical examination without abnormal findings Vitamin B12 and Folate 4 Months E53.8 - Deficiency of other specified B group vitamins, Z00.00 - Encounter for general adult medical examination without abnormal findings Medications: Refilled zolpidem 10 mg PO BEDTIME 30 days PRN 30 tabs 1RF sleep F51.01 - Primary insomnia celecoxib 200 mg PO DAILY 90 days PRN 90 caps 3RF for pain M17.12 - Unilateral primary osteoarthritis, left knee docusate sodium 100 mg PO DAILY PRN 90 caps 3RF for constipation K59.00 - Constipation, unspecified escitalopram oxalate 10 mg PO DAILY 90 tabs 3RF gabapentin 400 mg PO TID 90 days 270 caps 3RF M17.12 - Unilateral primary osteoarthritis, left knee lisinopril 5 mg PO DAILY 90 tabs 3RF I10 - Essential (primary) hypertension omeprazole 20 mg PO DAILY 90 caps 3RF atorvastatin 40 mg PO DAILY 90 tabs 3RF mirtazapine 30 mg PO BEDTIME 90 days 90 tabs 3RF F33.9 - Major depressive disorder, recurrent, unspecified tramadol 50 mg PO Q6H 90 days PRN 360 tabs 1RF pain M17.12 - Unilateral primary osteoarthritis, left knee Coding Level of Care Code Est Pt Prev Care 40-64y(17535) Diagnoses Annual physical exam Z00.00 Pure hypercholesterolemia E78.00 Benign essential hypertension I10 Migraine without status migrainosus, not intractable, unspecified migraine type G43.909 Migraine type: unspecified Status migrainosus presence: without status migrainosus Intractability: not intractable Gastroesophageal reflux disease without esophagitis K21.9 Esophagitis presence: without esophagitis Nonintractable epilepsy without status epilepticus, unspecified epilepsy type G40.909 Epilepsy type: unspecified Intractability: not intractable Status epilepticus: without status epilepticus Primary osteoarthritis of left knee M17.12 Osteoarthritis type: primary Mild obstructive sleep apnea G47.33 Constipation, unspecified constipation type K59.00 Constipation type: unspecified constipation type Primary insomnia F51.01 Insomnia type: primary Anxiety F41.9 Episode of recurrent major depressive disorder, unspecified depression episode severity F33.9 Depression Type: major depressive disorder Major depression recurrence: recurrent Active/Remission status: currently active Major depression episode severity: unspecified Overweight (BMI 25.0-29.9) E66.3 Additional Codes EAN-7 Assessment Billing - EAN-7 Assessment Tool: EAN-7 Assessment [id number] ([id number])
[2023-12-20 10:11] VITALS: BP 110/68; PULSE 78; O2SAT 97; BMI 27.6
== END 2023-12-20 11:42 | disposition home or self-care (01) ==
PROVIDERS: PCP Internal Medicine; Visit Provider Internal Medicine
DX: Z00.00 Encounter for general adult medical examination without abnormal findings (principal); G40.909 Epilepsy, unspecified, not intractable, without status epilepticus; F33.9 Major depressive disorder, recurrent, unspecified; E78.00 Pure hypercholesterolemia, unspecified; I10 Essential (primary) hypertension; G43.909 Migraine, unspecified, not intractable, without status migrainosus; K21.9 Gastro-esophageal reflux disease without esophagitis; M17.12 Unilateral primary osteoarthritis, left knee; G47.33 Obstructive sleep apnea (adult) (pediatric); K59.00 Constipation, unspecified; F51.01 Primary insomnia; F41.9 Anxiety disorder, unspecified
CPT/HCPCS: 99396

== ENCOUNTER 2024-04-18 11:53 | Outpatient (REF) | payer OTHER, SELFPAY ==
[2024-04-18 13:12] LABS: MANUAL DIFF FLAG NO
[2024-04-18 13:16] LABS: Appearance Urine Clear; Color Urine Dark Yellow; Glucose Urine UA Negative (Negative); Leukocyte Esterase Urine Negative (Negative); Nitrite Urine Negative (Negative); PH 5.5 (5.0-9.0); Specific Gravity - Urine 1.025 (1.005-1.025); Urine Blood Negative (Negative); Urine Ketones Trace mg/dL (Negative); Urine Protein Trace mg/dL (Neg-Trace)
[2024-04-18 13:43] LABS: Basophils Percent Auto 0.4 % (0-2); Hematocrit 42.1 % (42.0-52.0); Hemoglobin 15.1 g/dl (14.0-18.0); Imm Gran Abs Auto 0.04 X10*3/uL (0.00-0.03); Imm Gran Pct Auto 0.5 % (0.0-0.4); Lymphocytes Absolute Auto 0.7 X10*3/uL (1.2-4.9); Lymphocytes Percent Auto 8.8 % (20-40); Mean Corpuscular HGB Conc 35.9 g/dl (31.0-36.0); Mean Corpuscular Hemoglobin 33.2 pg (27.0-33.0); Mean Corpuscular Volume 92.5 fL (80.0-98.0); Mean Platelet Volume 11.1 fL (9.4-12.4); Monocytes Absolute Auto 0.4 X10*3/uL (0.1-1.2); Monocytes Percent Auto 5.3 % (2-11); Neutrophils Absolute Auto 7.1 x10*3/uL (2.0-8.3); Platelet Count 142 X10*3/uL (160-400); Red Blood Count 4.55 X10*6/uL (4.60-5.80); Red Cell Distribution Width 13.4 % (11.0-16.0); White Blood Count 8.3 X10*3/uL (4.8-10.8)
[2024-04-18 14:07] LABS: Phenytoin Dilantin 13.7 ug/mL (10.0-20.0)
[2024-04-18 14:21] LABS: Folate 9.4 ng/mL (> or = 4.0); Prostate Specific Antigen 0.12 ng/mL (<0.05-4.0); Vitamin B12 315 pg/mL (200-900)
[2024-04-18 14:22] LABS: Alanine Aminotransferase 33 U/L (0-40); Albumin Level 4.8 g/dL (3.5-5.0); Alkaline Phosphatase 60 U/L (39-117); Anion Gap 12 (12-20); Aspartate Amino Transferase 21 U/L (5-37); Bilirubin Total 0.7 mg/dL (0.0-1.0); Blood Urea Nitrogen 18 mg/dL (9-16); Calcium 10.2 mg/dL (8.4-10.2); Carbon Dioxide 26 mmol/L (22-29); Chloride 107 mmol/L (96-108); Cholesterol 165 mg/dL (<200); Estimated Glomerular Filt Rate > 60; Glucose Fasting 101 mg/dL (60-99); HDL Cholesterol 68 mg/dL (>40); LDL Cholesterol Calculated 85 mg/dL (<100); Potassium 3.9 mmol/L (3.3-5.1); Sodium 141 mmol/L (135-145); Triglycerides 63 mg/dL (<150)
[2024-04-18 14:31] LABS: TSH reflex Free T4 1.17 uIU/mL (0.32-4.0)
== END 2024-04-18 11:54 | disposition home or self-care (01) ==
LOC: HO.10HDL 11:53
PROVIDERS: Visit Provider Internal Medicine
DX: Z00.00 Encounter for general adult medical examination without abnormal findings (principal); E78.00 Pure hypercholesterolemia, unspecified; E55.9 Vitamin D deficiency, unspecified; N40.0 Benign prostatic hyperplasia without lower urinary tract symptoms; R30.0 Dysuria; E53.8 Deficiency of other specified B group vitamins; G40.909 Epilepsy, unspecified, not intractable, without status epilepticus; D64.9 Anemia, unspecified; Z12.5 Encounter for screening for malignant neoplasm of prostate
CPT/HCPCS: 36415; 80053; 80061; 80185; 81003; 82306; 82607; 82746; 84153; 84443; 85025

== ENCOUNTER 2024-04-20 10:43 | Outpatient (AMB) | payer OTHER, SELFPAY ==
[2024-04-20 10:55] VITALS: BP 106/58; PULSE 78; O2SAT 97; BMI 27.1
--- NOTE | 2024-04-20 10:55 | MHC.PC.OV ---
Vital Signs 04/20/24 10:55 Height 5 ft 8 in Weight 178 lb BMI 27.1 BP 106/58 L Blood Pressure Location Lt brachial Position Sitting Pulse 78 Pulse Source Pulse Oximeter Pulse Oximetry (%) 97 Oxygen Delivery Method Room Air Intake Visit Reasons: hyperlipidemia, OA, HTN, depression Allergies No Known Allergies Allergy (Mild, Verified 04/20/24 11:47) N/A Medication List - Last Reconciled 04/20/24 by Moises Pierre MD atorvastatin 40 mg PO DAILY puzbfpccgv-ihavydwtgstuh-wtkc 50-325-40 mg 1 tab PO Q6H PRN celecoxib 200 mg PO DAILY PRN 90 days docusate sodium 100 mg PO DAILY PRN escitalopram oxalate 10 mg PO DAILY gabapentin 400 mg PO TID 90 days lisinopril 5 mg PO DAILY mirtazapine 30 mg PO BEDTIME 90 days omeprazole 20 mg PO DAILY phenytoin sodium extended 200 mg (2 x 100 mg) PO BID sildenafil 50 mg PO DAILY PRN tramadol 50 mg PO Q6H PRN 90 days zolpidem 10 mg PO BEDTIME PRN 30 days Tobacco use date assessed: 12/20/23 Dental Screening Dental Screen Date: 12/20/23 HPI hyperlipidemia, OA, HTN, depression HPI Details Patient comes in today for his follow up visit States that he feels okay He denies any headaches or dizziness Denies any chest pains, no SOB No nausea/vomiting, no abdominal pain No change in bowel habits notes He denies any recent seizures States that his chronic joint pains remain adequately controlled on his current Rx Had his follow up labs done a couple of days ago - to discuss his results [facility] Medical History Overweight (BMI 25.0-29.9) Depression Anxiety Insomnia Constipation Mild obstructive sleep apnea Epilepsy GERD (gastroesophageal reflux disease) Osteoarthritis of left knee Migraine Pure hypercholesterolemia Benign essential hypertension HTN (hypertension) High blood cholesterol Epilepsia Surgical History Hx of colonoscopy History of placement of ear tubes History of appendectomy History of left knee replacement (~11/2011) Family History Father Stroke Cardiovascular disease Mother Diabetes Social History Housing: House Alcohol intake: current Alcohol intake frequency: a few times a month Alcohol type: beer Patient Tobacco Use Status: Former Tobacco user Tobacco use type: Cigarette e-Cigarette/Vaping Use: Never Used Second Hand Smoke Exposure: Yes service: No Current occupational status: employed Cognitive needs: No Hearing needs: No Vision needs: No Questionnaire PHQ-9 Over the last 2 weeks, how often have you been bothered by any of the following problems? 1. Little interest or pleasure in doing things: not at all 2. Feeling down, depressed, or hopeless: not at all 3. Trouble falling or staying asleep, or sleeping too much: not at all 4. Feeling tired or having little energy: not at all 5. Poor appetite or overeating: not at all 6. Feeling bad about yourself - or that you are a failure or have let yourself or your family down: not at all 7. Trouble concentrating on things, such as reading the newspaper or watching television: not at all 8. Moving or speaking so slowly that other people could have noticed. Or the opposite - being so fidgety or restless that you have been moving around a lot more than usual: not at all 9. Thoughts that you would be better off or of hurting yourself in some way: not at all Total score: 0 Depression Screening Interpretation: Negative Depression Screening Done: Yes 31432 - PHQ-9 Billing: Yes Source: Developed by Drs. Angel Orozco, Zohreh Flores, Rah Hill and colleagues, with an educational john from [employer]. Thrive Questionnaire Date Thrive assessed: 12/20/23 AUDIT C Alcohol Use Questionnaire (AUDIT-C) 1. How often do you have a drink containing alcohol?: 2-3 times a week 2. How many drinks containing alcohol do you have on a typical day when you are drinking?: 5 or 6 3. How often do you have six or more drinks on one occasion?: Monthly Total Score: 7 Score Reviewed/Action Taken: Yes EAN-7 AMB Questionnaire EAN-7 Date EAN - 7 assessed: 12/20/23 Source: Developed by Drs. Angel Orozco, Rah Patton and colleagues, with an educational john from [employer]. Review of Systems Const Denies chills, Reports difficulty sleeping (Rx helps), Denies fatigue, Denies fever(s) and Denies headache(s) ENT Denies dysphagia, Denies dizziness, Denies otalgia, Denies headache(s), Denies neck pain, Denies odynophagia and Denies sore throat Card Denies chest pain, Denies palpitations and Denies dyspnea Resp Denies cough, Denies dyspnea and Denies wheezing GI Denies abdominal pain, Denies constipation, Denies dysphagia, Denies heartburn, Denies diarrhea, Denies nausea, Denies odynophagia and Denies vomiting Denies dysuria, Denies nocturia and Denies urinary frequency Musc Denies back pain, Reports arthralgias (especially over his knees) and Denies neck pain Skin/Breast Denies rash Neuro Denies dizziness, Denies headache(s) and Denies convulsions Endo Denies fatigue and Denies palpitations Aller/Immun Denies wheezing Physical exam (Primary Care) Vital Signs: Last Vital Signs Pulse 78 04/20/24 10:55 BP 106/58 L 04/20/24 10:55 Pulse Ox 97 04/20/24 10:55 Oxygen Delivery Method Room Air 04/20/24 10:55 BMI result Body Mass Index 27.1 Tobacco/Smoking Status: Tobacco use Status Tobacco use date assessed 12/20/23 04/20/24 11:00 Patient Tobacco Use Status Former Tobacco user 04/20/24 11:00 Tobacco use type Cigarette 04/20/24 11:00 e-Cigarette/Vaping Use Never Used 04/20/24 11:00 PHQ-9: PHQ-9 Score PHQ-9: Total score 0 04/20/24 11:00 Depression Screening Interpretation: Negative Thrive Assessment: Date of Thrive Assessment Date Thrive assessed 12/20/23 04/20/24 11:00 Const General: no acute distress and alert HENMT Ears: TM's normal bilaterally and EAC's normal Throat: Yes posterior oropharynx normal and Yes tonsils normal (no TP congestion) Neck Neck: Yes no lymphadenopathy and Yes supple Thyroid: Thyroid normal Resp Auscultation: clear to auscultation bilaterally, no rales and no wheezes Cardio Rate: regular rate Rhythm: regular rhythm Heart sounds: no murmurs GI Palpation (GI): Soft to palpation and nontender Auscultation: normal bowel sounds General: Yes no CVA tenderness Back/Spine/Pelvis Back: no CVA tenderness Thoracic/Lumbar Spine: No lumbar spinal tenderness Skin Rashes: no rashes Extrem General: Yes no clubbing, cyanosis or edema Left lower extremity: knee Details: tenderness (chronic); no swelling Results Reviewed Results Reviewed: Laboratory Tests 04/18/24 12:02 WBC 8.3 Hgb 15.1 Hct 42.1 Plt Count 142 L Sodium 141 Potassium 3.9 Creatinine 0.96 Estimated GFR > 60 Fasting Glucose 101 H Calcium 10.2 D AST 21 ALT 33 Triglycerides 63 Cholesterol 165 LDL Cholesterol, Calc 85 HDL Cholesterol 68 Prostate Specific Ag 0.12 Vitamin B12 315 25-OH Vitamin D Total 61.0 TSH 1.17 Ur Specific [place] 1.025 Urine Protein Trace Urine Glucose (UA) Negative Urine Blood Negative Urine Nitrite Negative Ur Leukocyte Esterase Negative Phenytoin 13.7 Assessment and Plan Assessment & Plan (1) Pure hypercholesterolemia: Code(s): E78.00 - Pure hypercholesterolemia, unspecified Plan: Results of his labs done a couple of days ago reviewed and discussed with patient Reinforced low cholesterol diet Continue Atorvastatin 40 mg QD Will recheck his labs and fasting lipids in 4 months for follow up (2) Benign essential hypertension: Code(s): I10 - Essential (primary) hypertension Plan: Reinforced low sodium diet -? goal is systolic BP of 120 mm or less Continue Lisinopril 5 mg QD (3) Migraine: Code(s): G43.909 - Migraine, unspecified, not intractable, without status migrainosus Qualifiers: Migraine type: unspecified Status migrainosus presence: without status migrainosus Intractability: not intractable Qualified Code(s): G43.909 - Migraine, unspecified, not intractable, without status migrainosus Plan: Stable -? continue Fioricet tablet every 4-6 hours as needed and Sumatriptan 100 mg PRN (4) GERD (gastroesophageal reflux disease): Code(s): K21.9 - Gastro-esophageal reflux disease without esophagitis Qualifiers: Esophagitis presence: without esophagitis Qualified Code(s): K21.9 - Gastro-esophageal reflux disease without esophagitis Plan: Dietary restrictions reinforced Continue Omeprazole 20 mg QD (5) Epilepsy: Code(s): G40.909 - Epilepsy, unspecified, not intractable, without status epilepticus Qualifiers: Epilepsy type: unspecified Intractability: not intractable Status epilepticus: without status epilepticus Qualified Code(s): G40.909 - Epilepsy, unspecified, not intractable, without status epilepticus Plan: Stable with no recent recurrence of seizures Continue Dilantin 200 mg BID Follow-up with neurology as scheduled (6) Osteoarthritis of left knee: Code(s): M17.12 - Unilateral primary osteoarthritis, left knee Qualifiers: Osteoarthritis type: primary Qualified Code(s): M17.12 - Unilateral primary osteoarthritis, left knee Plan: States that his joint pains remain adequately controlled on his current medications Continue Celecoxib 200 mg once a day as needed, Gabapentin 400 mg TID and Tramadol 50 mg 3 to 4 times a day as needed for pain Follow-up with Orthopedics as scheduled (7) Mild obstructive sleep apnea: Comment: Home sleep study done at [facility] [place] on 06/24/2016 showed (+) mild degree of NIKHIL, with episodes mostly occurring in the supine position Patient was advised to lose weight and avoid sleeping on his back as much as possible to help address these issues; will consider repeat surgery with CPAP titration if symptoms do not improve with conservative corrective measures Code(s): G47.33 - Obstructive sleep apnea (adult) (pediatric) Plan: Patient reports no recent problems and his symptoms remain well-controlled, with no intervention needed at this time (8) Constipation: Code(s): K59.00 - Constipation, unspecified Qualifiers: Constipation type: unspecified constipation type Qualified Code(s): K59.00 - Constipation, unspecified Plan: Improved/controlled - encouraged to continue increased oral fluids and dietary fiber Continue Colace 100 mg QD PRN (9) Insomnia: Code(s): G47.00 - Insomnia, unspecified Qualifiers: Insomnia type: primary Qualified Code(s): F51.01 - Primary insomnia Plan: Sleep hygiene reinforced Continue Zolpidem 10 mg daily at bedtime as needed Is also on Mirtazapine, which should help with his sleep (10) Anxiety: Code(s): F41.9 - Anxiety disorder, unspecified Plan: Patient? states that he is doing well with his anxiety Follow-up with mental health counselor at [facility] as scheduled (11) Depression: Code(s): F32.9 - Major depressive disorder, single episode, unspecified Qualifiers: Depression Type: major depressive disorder Major depression recurrence: recurrent Active/Remission status: currently active Major depression episode severity: unspecified Qualified Code(s): F33.9 - Major depressive disorder, recurrent, unspecified Plan: Continue Mirtazapine 30 mg Q HS and Escitalopram 10 mg Q AM Follow-up with Psychiatry as scheduled (12) Overweight (BMI 25.0-29.9): Code(s): E66.3 - Overweight Plan: Reinforced diet/exercise as tolerated/lose weight Plan Follow up in 4 months Orders: Orders Complete Blood Count Auto Diff 4 Months D64.9 - Anemia, unspecified Lipid Panel 4 Months E78.00 - Pure hypercholesterolemia, unspecified UA CC w/rflx Micro + Cult 4 Months R30.0 - Dysuria Comprehensive [place]. Panel Fast 4 Months E78.00 - Pure hypercholesterolemia, unspecified TSH reflex Free T4 4 Months E78.00 - Pure hypercholesterolemia, unspecified Vitamin D 25-OH Total 4 Months E55.9 - Vitamin D deficiency, unspecified Phenytoin Dilantin 4 Months G40.909 - Epilepsy, unspecified, not intractable, without status epilepticus Coding Level of Care Code Est Pt Level 4 (97366) Complex EM visit Add On G2211 Diagnoses Pure hypercholesterolemia E78.00 Benign essential hypertension I10 Migraine without status migrainosus, not intractable, unspecified migraine type G43.909 Migraine type: unspecified Status migrainosus presence: without status migrainosus Intractability: not intractable Gastroesophageal reflux disease without esophagitis K21.9 Esophagitis presence: without esophagitis Nonintractable epilepsy without status epilepticus, unspecified epilepsy type G40.909 Epilepsy type: unspecified Intractability: not intractable Status epilepticus: without status epilepticus Primary osteoarthritis of left knee M17.12 Osteoarthritis type: primary Mild obstructive sleep apnea G47.33 Constipation, unspecified constipation type K59.00 Constipation type: unspecified constipation type Primary insomnia F51.01 Insomnia type: primary Anxiety F41.9 Episode of recurrent major depressive disorder, unspecified depression episode severity F33.9 Depression Type: major depressive disorder Major depression recurrence: recurrent Active/Remission status: currently active Major depression episode severity: unspecified Overweight (BMI 25.0-29.9) E66.3
== END 2024-04-20 12:00 | disposition home or self-care (01) ==
PROVIDERS: PCP Internal Medicine; Visit Provider Internal Medicine
DX: E78.00 Pure hypercholesterolemia, unspecified (principal); G40.909 Epilepsy, unspecified, not intractable, without status epilepticus; F33.9 Major depressive disorder, recurrent, unspecified; I10 Essential (primary) hypertension; G43.909 Migraine, unspecified, not intractable, without status migrainosus; K21.9 Gastro-esophageal reflux disease without esophagitis; M17.12 Unilateral primary osteoarthritis, left knee; G47.33 Obstructive sleep apnea (adult) (pediatric); K59.00 Constipation, unspecified; F51.01 Primary insomnia; F41.9 Anxiety disorder, unspecified; E66.3 Overweight
CPT/HCPCS: 99214

== ENCOUNTER 2024-05-01 10:02 | Day surgery (SDC) | payer OTHER, SELFPAY ==
[2024-04-27 14:36] VITALS: BMI 26.5
--- NOTE | 2024-04-28 09:09 | HO.ANESPROP2 ---
HPI - Anesthesia Eval Consult details Narrative: 63yo M for Colonoscopy PMF Active Problems Active Problems: All Active Problems Thumb lesion (Acute) Spider bite (Acute) Abscess of skin (Acute) Cellulitis of right leg (Acute) Cellulitis of left foot (Acute) Annual physical exam (Acute) Sinusitis, acute (Acute) Overweight (BMI 25.0-29.9) (Acute) Depression (Acute) Anxiety (Acute) Insomnia (Acute) Constipation (Acute) Mild obstructive sleep apnea (Acute) Epilepsy (Acute) GERD (gastroesophageal reflux disease) (Acute) Osteoarthritis of left knee (Acute) Migraine (Acute) Pure hypercholesterolemia (Acute) Benign essential hypertension (Acute) Past Medical History Medical History (Updated 04/27/24 @ 14:39 by Destinee Phillips RN) Overweight (BMI 25.0-29.9) Depression Anxiety Insomnia Constipation Mild obstructive sleep apnea Epilepsy GERD (gastroesophageal reflux disease) Osteoarthritis of left knee Migraine Pure hypercholesterolemia Benign essential hypertension HTN (hypertension) High blood cholesterol Family History Family History Father Stroke Cardiovascular disease Mother Diabetes Surgical History Surgical History (Updated 04/27/24 @ 14:23 by Destinee Phillips RN) History of back surgery History of esophagogastroduodenoscopy (EGD) Hx of colonoscopy History of placement of ear tubes History of appendectomy History of left knee replacement (~11/2011) Social History Social History Housing: House Alcohol intake: current Alcohol intake frequency: a few times a month Alcohol type: beer Patient Tobacco Use Status: Former Tobacco user Tobacco use type: Cigarette e-Cigarette/Vaping Use: Never Used Second Hand Smoke Exposure: Yes Use of substances other than those prescribed or required for medical reasons: No Have you been hit, kicked, punched, or otherwise hurt by someone within the past year? If so, by whom?: No Are you DNR?: No Advance Directives: No Advance Directives Information Provided: Yes Advance Directives on File: No Recently lost weight without trying: No Eating poorly because of decreased appetite: No Nutrition Risks: No Nutritional Risk service: No Current occupational status: employed Cognitive needs: No Hearing needs: No Vision needs: No Meds Allergies Allergy/AdvReac Type Severity Reaction Status Date / Time No Known Allergies Allergy Mild N/A Verified 04/20/24 11:47 Home Medications ?Medication ?Instructions ?Recorded ?Confirmed ?Last Taken ?Type unjgmycznu-eijaqrwszoncp-erfcvmeg 1 tab PO Q6H PRN Migraine Headache 07/03/20 04/27/24 Unknown History 50 mg-325 mg-40 mg tablet sildenafil 50 mg tablet 50 mg PO DAILY PRN Erectile 07/03/20 04/27/24 Unknown History Dysfunction Exam Height,Weight and Vital Signs: Height 5 ft 8 in Weight 78.925 kg Assessment and Plan Assessment Anesthesia Assessment: Chart Reviewed
[2024-05-01 11:10] VITALS: BP 142/82; PULSE 63; RESP 18; TEMP 36.7; O2SAT 96; BMI 26.1
--- NOTE | 2024-05-01 12:39 | P.BOP_ITS ---
Brief Operative Note Date of Service: 05/01/24 Pre-op diagnosis: Screening Post-op diagnosis: other (Diverticulosis) Procedure: Colonoscopy to the cecum Surgeon: Angel Calderón MD Anesthesia: MAC Was an Inclusion Special Education Teacher used for this Procedure?: No Estimated blood loss (mL): 0 Pathology: none sent Condition: stable Disposition: PACU
[2024-05-01 12:41] VITALS: BP 104/60; PULSE 64; RESP 16; TEMP 36.2; O2SAT 97
[2024-05-01 12:56] VITALS: BP 115/78; PULSE 55; RESP 16; TEMP 36.2; O2SAT 99
--- NOTE | 2024-05-01 13:29 | OP_ITS ---
DATE OF SERVICE: 05/01/2024 SURGEON: Angel Calderón MD INDICATIONS: The patient presents for evaluation of colorectal cancer screening. Full consent has been obtained from him for this, including risks of bleeding and perforation. PREOPERATIVE DIAGNOSIS: Colorectal cancer screening. POSTOPERATIVE DIAGNOSIS: PROCEDURE PERFORMED: Colonoscopy to the cecum. ESTIMATED BLOOD LOSS: COMPLICATIONS: ANESTHESIA: Monitored anesthesia care. ASSISTANTS: SPECIMENS: POSTOPERATIVE DIAGNOSES: Colorectal cancer screening, sigmoid diverticulosis, and internal hemorrhoids. DESCRIPTION OF PROCEDURE: The patient was placed in the left lateral decubitus position. The digital rectal exam revealed no abnormalities. The Olympus video pediatric colonoscope was then entered into the rectum and advanced easily to the cecum. Once in the cecum, I did identify normal-appearing cecal pouch with appendiceal orifice and a normal-appearing ileocecal valve. The entire cecum and ileocecal valve appeared normal. There was transillumination of light deep in the right lower quadrant. The scope was slowly withdrawn assessing all mucosal surfaces carefully. Preparation was excellent. I did not visualize any sign of polyps, colitis, nor angiodysplasias. There was a mild amount of sigmoid diverticulosis. In the rectum, scope was retroflexed, visualizing internal hemorrhoids, but no other pathology. The rectal mucosa appeared normal. Scope was straightened and withdrawn from the patient. He tolerated the procedure well and was returned to the recovery area in stable condition. IMPRESSION: 1. Diverticulosis. 2. Internal hemorrhoids. PLAN: Given today's negative exam and negative family history, I would recommend a followup colonoscopy in 10 years for further screening. He will, otherwise, see me on a p.r.n. basis. Angel Calderón MD RMW/MODL / [id number]
== END 2024-05-01 13:12 | disposition home or self-care (01) ==
PROVIDERS: PCP Internal Medicine; Visit Provider Internal Medicine
PROC: 0DJD8ZZ Inspection of Lower Intestinal Tract, Via Natural or Artificial Opening Endoscopic (ICD-10-PCS; CPT 45378; principal; 2024-05-01 11:20)
DX: Z12.11 Encounter for screening for malignant neoplasm of colon (principal); K57.30 Diverticulosis of large intestine without perforation or abscess without bleeding; K64.8 Other hemorrhoids; I10 Essential (primary) hypertension; G40.909 Epilepsy, unspecified, not intractable, without status epilepticus; Z79.899 Other long term (current) drug therapy
CPT/HCPCS: 45378; J2704

== ENCOUNTER 2024-08-24 07:15 | Outpatient (REF) | payer OTHER, SELFPAY ==
--- OUTSIDE RECORDS SUMMARY | 2024-08-24 07:16 | XMS_ITS ---
Author Organization [facility] Address [address] [place] [address] Care Team Providers Care Pill Packer Name Role Phone Ignacio OLIVERA, [place] Primary Care Provider Angel Whipple Unavailable [phone] REASON FOR VISIT screening PROBLEMS Problem Type ICD Code Onset Dates Problem Status W/U Status Risk SNOMED Code Notes Problem Diverticulosis of large intestine without perforation or abscess without bleeding (K57.30) Active confirmed Diverticul ar disease of colon (274721790) Encounters Encounter Location Date Provider Diagnosis [facility] [place] [place] Outpatient [address] [place], [place] [phone] 05/01/2024 Angel Calderón Colon cancer scree fabio Z12.11 ; Diverticulosis of large intestine without perforation or abscess without bleeding K57.30 and Other hemorrhoids K64.8 ASSESSMENTS Encounter Date Diagnosis Assessment Notes Treatment Notes Treatment Clinical Notes 05/01/2024 Colon cancer screening (ICD-10 - Z12.11) 05/01/2024 Diverticulosis of large intestine without perforation or abscess without bleeding (ICD-10 - K57.30) 05/01/2024 Other hemorrhoids (ICD-10 - K64.8) PLAN OF TREATMENT No Information
--- OUTSIDE RECORDS SUMMARY | 2024-08-24 07:17 | XMS_ITS | Patient Health Record ---
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 Role Phone Ignacio OLIVERA [place] Primary Care Provider Angel Whipple Unavailable [phone] ALLERGIES No Known Allergies REASON FOR REFERRAL No Information MEDICATIONS Medication SIG (Take, Route, Fr equency, Duration) Notes Start Date End Date Status Mirtazapine 30mg Act lisa Doc-Q-Lace 100mg Act lisa Gabapentin 400mg Act lisa traMADol HCl 50mg Ac tive Simvastatin 20mg Act lisa Omeprazole 20mg Acti ve Nortriptyline HCl 50mg Active traZODone HCl 150mg Active Phenytoin 100mg Acti ve Lisinopril 5mg Activ e CeleBREX 200mg Activ e IMMUNIZATIONS Vaccine Route Administration Date Status Comme nts Influenza Unknown 06/01/2023 Administered SOCIAL HISTORY Sex Assigned At : Social History Observation Description Sex Assigned At Unknown PROBLEMS Problem Type ICD Code Onset Dates Problem Status W/U Status Risk SNOMED Code Notes Problem Colon cancer screening (Z12.11) Active confirmed Colon cancer screening (000527122) Problem Encounter for other preprocedural examination (Z01.818) Active confirmed Pre-procedure evaluation check (094216539) Problem Diverticulosis of large intestine without perforation or abscess without bleeding (K57.30) Active confirmed Diverticul ar disease of colon (953675200) Problem Chronic GERD (K21.9) Active confirmed Gastroesophagea l reflux disease (disorder) (840217302) VITAL SIGNS Temperature 97.7 degrees Fahrenheit 02/11/2024 Blood pressure diastolic 00 mm Hg 02/11/2024 Height 68 in 02/11/2024 Blood pressure systolic 000 mm Hg 02/11/2024 Weight 174 lb 2 oz lbs 02/11/2024 BMI 26.47 kg/m2 02/11/2024 Encounters Encounter Location Date Provider Diagnosis [facility] [address] [place], [place] [id number] 05/01/2024 Angel Calderón Colon cancer screeni ng Z12.11 ; Diverticulosis of large intestine without perforation or abscess without bleeding K57.30 and Other hemorrhoids K64.8 [facility] [address] [place] [address] 02/11/2024 Angel Calderón Colon cancer screeni ng Z12.11 ; Chronic GERD K21.9 and Encounter for other preprocedural examination Z01.818 ASSESSMENTS Encounter Date Diagnosis Assessment Notes Treatment Notes Treatment Clinical Notes 05/01/2024 Colon cancer screening (ICD-10 - Z12.11) 05/01/2024 Diverticulosis of large intestine without perforation or abscess without bleeding (ICD-10 - K57.30) 02/11/2024 Colon cancer screening (ICD-10 - Z12.11) 02/11/2024 Chronic GERD (ICD-10 - K21.9) 05/01/2024 Other hemorrhoids (ICD-10 - K64.8) 02/11/2024 Encounter for other preprocedural examination (ICD-10 - Z01.818) PLAN OF TREATMENT Future Test Test Name Order Date UPPER GI ENDOSCOPY 10/06/2013 COLONOSCOPY 10/06/2013 COLONOSCOPY 02/11/2024 Insurance Providers Payer Name Payer Address Payer Phone Subscriber Number Group Number Insured Name Patient Relationship to Insured Coverage Start Date Coverage End Date [facility] [address] [place] [phone] [id number] MACARIO THOMAS Self - patient is the insured MEDICAL (GENERAL) HISTORY Medical History History ICD Code Colonoscopy 09-24-2003--neg for polyps-ju st internal hemorrhoids GERD Hypertension Migraines Seizure disorder Denies PR,DM,CVA,Lung disease,renal dise ase Hyperlipidemia Takes Gabapentin for knee pain Previous history of elevated LFTs felt to be related to some mild fatty liver--he had negative hepatitis serologies and borderline iron studies, with negative genetic testing for hemochromatosis--- a liver profile in July of 2013 was normal Neg. colonoscopy in 11/2013 except for a hyperplastic polyp EGD 11/2013 small HH; bx neg for Hpylori and Sharma's Surgical History Surgery Date(Month/Year) Knee surgery Appendectomy Back surgery Total left knee replacement in 2011
--- OUTSIDE RECORDS SUMMARY | 2024-08-24 07:17 | XMS_ITS ---
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 Role Phone Ignacio OLIVERA, [place] Primary Care Provider Angel Whipple Unavailable [phone] ALLERGIES No Known Allergies REASON FOR VISIT Patient presents today for a recall colonoscopy MEDICATIONS Medication SIG (Take, Route, Fr equency, Duration) Notes Start Date End Date Status Doc-Q-Lace 100mg Act lisa Gabapentin 400mg Act lisa traMADol HCl 50mg Ac tive Omeprazole 20mg Acti ve Mirtazapine 30mg Act lisa Simvastatin 20mg Act lisa Nortriptyline HCl 50mg Active traZODone HCl 150mg Active CeleBREX 200mg Activ e Phenytoin 100mg Acti ve Lisinopril 5mg Activ e SOCIAL HISTORY Tobacco Use: Social History Observation Description Date Details (start date - stop date) Never Smoker NA - NA Sex Assigned At : Social History Observation Description Sex Assigned At Unknown Tobacco Use/Smoking Question Answer Notes Patient is a nonsmoker Alcohol Screen Question Answer Notes Did you have a drink contain ing alcohol in the past year? Yes Points 3 Interpretation Negative How often did you have 6 or more drinks on one occasion in the past year? Never (0 point) How many drinks did you have on a typical day when you were drinking in the past year? 1 or 2 drinks (0 point) How often did you have a dri nk containing alcohol in the past year? 2 to 3 times a week (3 points) PROBLEMS Problem Type ICD Code Onset Dates Problem Status W/U Status Risk SNOMED Code Notes Problem Colon cancer screening (Z12.11) Active confirmed Colon cancer screening (694006817) Problem Chronic GERD (K21.9) Active confirmed Gastroesophagea l reflux disease (disorder) (350657027) Problem Encounter for other preprocedural examination (Z01.818) Active confirmed Pre-procedure evaluation check (161704582) VITAL SIGNS BMI 26.47 kg/m2 02/11/2024 Blood pressure systolic 000 mm Hg 02/11/20 24 Blood pressure diastolic 00 mm Hg 024 Height 68 in 02/11/2024 Temperature 97.7 degrees Fahrenheit 02/11/20 24 Weight 174 lb 2 oz lbs 02/11/2024 Encounters Encounter Location Date Provider Diagnosis [facility] [address] [place] [address] 02/11/2024 Angel Calderón Colon cancer screeni ng Z12.11 ; Chronic GERD K21.9 and Encounter for other preprocedural examination Z01.818 ASSESSMENTS Encounter Date Diagnosis Assessment Notes Treatment Notes Treatment Clinical Notes 02/11/2024 Colon cancer screening (ICD-10 - Z12.11) 02/11/2024 Chronic GERD (ICD-10 - K21.9) 02/11/2024 Encounter for other preprocedural examination (ICD-10 - Z01.818) PLAN OF TREATMENT Medication Medication Name Sig Start Date Stop Date Notes Omeprazole 20mg Future Test Test Name Order Date COLONOSCOPY 02/11/2024 Next Appt Details Follow Up: prn, Reason: Progress Notes * Examination Category Sub-Category Detail Notes General Examination GENERAL APPEARANCE: pleasant , well nourished, well developed, in no acute distress EYES: sclera non-icteric NECK/THYROID: no cervical lymphade nopathy, neck supple HEART: S1, S2 normal LUNGS: clear to auscultatio n bilaterally ABDOMEN: normal bowel sounds, no guarding or rigidity, no hepatosplenomegaly, no masses palpable, soft, nontender, nondistended. NEUROLOGIC: alert and oriented SKIN: nonjaundiced, no spi cassia angiomata. EXTREMITIES: no edema ORAL CAVITY: mucosa moist
[2024-08-24 07:35] LABS: MANUAL DIFF FLAG NO
[2024-08-24 08:01] LABS: Basophils Percent Auto 0.3 % (0-2); Hematocrit 44.2 % (42.0-52.0); Hemoglobin 15.4 g/dl (14.0-18.0); Imm Gran Abs Auto 0.03 X10*3/uL (0.00-0.03); Imm Gran Pct Auto 0.8 % (0.0-0.4); Lymphocytes Absolute Auto 0.8 X10*3/uL (1.2-4.9); Lymphocytes Percent Auto 21.9 % (20-40); Mean Corpuscular HGB Conc 34.8 g/dl (31.0-36.0); Mean Corpuscular Hemoglobin 33.2 pg (27.0-33.0); Mean Corpuscular Volume 95.3 fL (80.0-98.0); Mean Platelet Volume 10.6 fL (9.4-12.4); Monocytes Absolute Auto 0.3 X10*3/uL (0.1-1.2); Monocytes Percent Auto 8.7 % (2-11); Neutrophils Absolute Auto 2.4 x10*3/uL (2.0-8.3); Neutrophils Percent Auto 68.3 % (45-73); Platelet Count 141 X10*3/uL (160-400); Red Blood Count 4.64 X10*6/uL (4.60-5.80); Red Cell Distribution Width 13.5 % (11.0-16.0); White Blood Count 3.6 X10*3/uL (4.8-10.8)
[2024-08-24 08:10] LABS: Phenytoin Dilantin 10.5 ug/mL (10.0-20.0)
[2024-08-24 08:18] LABS: Appearance Urine Clear; Color Urine Yellow; Glucose Urine UA Negative (Negative); Leukocyte Esterase Urine Negative (Negative); Nitrite Urine Negative (Negative); PH 6.5 (5.0-9.0); Urine Blood Negative (Negative); Urine Ketones Negative (Negative); Urine Protein Negative (Neg-Trace)
[2024-08-24 08:25] LABS: Alanine Aminotransferase 41 U/L (0-40); Albumin Level 4.4 g/dL (3.5-5.0); Alkaline Phosphatase 60 U/L (39-117); Anion Gap 13 (12-20); Aspartate Amino Transferase 26 U/L (5-37); Bilirubin Total 0.4 mg/dL (0.0-1.0); Blood Urea Nitrogen 21 mg/dL (9-16); Calcium 9.9 mg/dL (8.4-10.2); Carbon Dioxide 26 mmol/L (22-29); Chloride 108 mmol/L (96-108); Cholesterol 161 mg/dL (<200); Estimated Glomerular Filt Rate > 60; Glucose Fasting 104 mg/dL (60-99); HDL Cholesterol 54 mg/dL (>40); LDL Cholesterol Calculated 92 mg/dL (<100); Potassium 4.2 mmol/L (3.3-5.1); Sodium 143 mmol/L (135-145); Total Protein 6.4 g/dL (6.5-8.0); Triglycerides 78 mg/dL (<150)
[2024-08-24 08:41] LABS: TSH reflex Free T4 1.13 uIU/mL (0.32-4.0); Vitamin D 25-OH Total 42.5 ng/mL (>30)
== END 2024-08-24 07:16 | disposition home or self-care (01) ==
LOC: HO.LAB 07:15
PROVIDERS: PCP Internal Medicine; Visit Provider Internal Medicine
DX: D64.9 Anemia, unspecified (principal); E78.00 Pure hypercholesterolemia, unspecified; R30.0 Dysuria; E55.9 Vitamin D deficiency, unspecified; G40.909 Epilepsy, unspecified, not intractable, without status epilepticus
CPT/HCPCS: 36415; 80053; 80061; 80185; 81003; 82306; 84443; 85025; 96127

== ENCOUNTER 2024-08-24 10:17 | Outpatient (AMB) | payer OTHER, SELFPAY ==
[2024-08-24 10:39] VITALS: BP 130/80; PULSE 76; O2SAT 95; BMI 28.0
--- NOTE | 2024-08-24 10:39 | A.OFFPC_ITS ---
Vital Signs 08/24/24 10:39 Height 5 ft 8 in Weight 184 lb BMI 28.0 BP 130/80 Blood Pressure Location Lt brachial Position Sitting Pulse 76 Pulse Source Pulse Oximeter Pulse Oximetry (%) 95 Oxygen Delivery Method Room Air Intake Visit Reasons: 4 Month F/U [employer] Required: No Accompanied by: Self / Same As Patient Allergies No Known Allergies Allergy (Mild, Verified 08/24/24 11:19) N/A Medication List - Last Reconciled 08/24/24 by Moises Pierre MD atorvastatin 40 mg PO DAILY [id number]-[id number] 50-325-40 mg 1 tab PO Q6H PRN celecoxib 200 mg PO DAILY PRN 90 days docusate sodium 100 mg PO DAILY PRN escitalopram oxalate 10 mg PO DAILY gabapentin 400 mg PO TID 90 days lisinopril 5 mg PO DAILY mirtazapine 30 mg PO BEDTIME 90 days omeprazole 20 mg PO DAILY phenytoin sodium extended 200 mg (2 x 100 mg) PO BID sildenafil 50 mg PO DAILY PRN tramadol 50 mg PO Q6H PRN 90 days zolpidem 10 mg PO BEDTIME PRN 30 days Tobacco use date assessed: 08/24/24 Fall risk assessment: 1 Fall in past year Last assessed Fall Risk: 08/24/24 Dental Screening Dental Screen Date: 08/24/24 Did you have a dental visit in the last 12 months?: No Did you have a dental problem in the last 6 months where you did not have access to dental care?: No Was dental information given to patient?: Patient has dentist HPI 4 Month F/U HPI Details Patient comes in today for his follow up visit States that he feels okay He denies any headaches or dizziness Denies any chest pains, no SOB No nausea/vomiting, no abdominal pain No change in bowel habits notes He denies any recent seizures States that his chronic joint pains remain adequately controlled on his current Rx He also had his repeat colonoscopy with Dr. Calderón done back in April 2024 - colonoscopy was normal and he was advised to get a repeat colonoscopy again in 10 years (2033) Had his follow up labs done earlier this morning - to discuss his results [facility] Medical History Overweight (BMI 25.0-29.9) Depression Anxiety Insomnia Constipation Mild obstructive sleep apnea Epilepsy GERD (gastroesophageal reflux disease) Osteoarthritis of left knee Migraine Pure hypercholesterolemia Benign essential hypertension HTN (hypertension) High blood cholesterol Surgical History (Updated 08/24/24 @ 11:27 by Moises Pierre MD) History of back surgery History of esophagogastroduodenoscopy (EGD) Hx of colonoscopy History of placement of ear tubes History of appendectomy History of left knee replacement (~11/2011) Family History Father Stroke Cardiovascular disease Mother Diabetes Social History Housing: House Alcohol intake: current Alcohol intake frequency: a few times a month Alcohol type: beer Patient Tobacco Use Status: Former Tobacco user Tobacco use type: Cigarette e-Cigarette/Vaping Use: Never Used Second Hand Smoke Exposure: Yes service: No Current occupational status: employed Cognitive needs: No Hearing needs: No Vision needs: No Questionnaire PHQ-9 Over the last 2 weeks, how often have you been bothered by any of the following problems? 1. Little interest or pleasure in doing things: not at all 2. Feeling down, depressed, or hopeless: not at all 3. Trouble falling or staying asleep, or sleeping too much: not at all 4. Feeling tired or having little energy: not at all 5. Poor appetite or overeating: not at all 6. Feeling bad about yourself - or that you are a failure or have let yourself or your family down: not at all 7. Trouble concentrating on things, such as reading the newspaper or watching television: not at all 8. Moving or speaking so slowly that other people could have noticed. Or the opposite - being so fidgety or restless that you have been moving around a lot more than usual: not at all 9. Thoughts that you would be better off or of hurting yourself in some way: not at all Total score: 0 Depression Screening Interpretation: Negative Depression Screening Done: Yes 56677 - PHQ-9 Billing: Yes Source: Developed by Drs. Angel Orozco, Zohreh Flores, Rah Hill and colleagues, with an educational john from [employer]. Thrive Questionnaire Date Thrive assessed: 08/24/24 I am a: Patient What is your living situation today?: I have a steady place to live Within the past 12 months, did the food you bought not last and you didn't have the money to get more?: Never true Within the past 12 months, did you worry whether your food would run out before you got money to buy more?: Never true Do you have trouble paying for medicines?: No Do you have trouble getting transportation to medical appointments?: No Do you have trouble paying your heating and electricity bill?: No Do you have trouble taking care of your child, family member or friend?: No Do you have trouble with day-to-day activities such as bathing, preparing meals, shopping, managing finances, etc.?: No Are you currently unemployed and looking for a job?: No Are you interested in more education?: No Please select the resources that you would like help with: None Currently or been in a relationship where the following occur: No concerns re ported THRIVE Score: 0 AUDIT C Alcohol Use Questionnaire (AUDIT-C) 2. How many drinks containing alcohol do you have on a typical day when you are drinking?: 1 or 2 3. How often do you have six or more drinks on one occasion?: Less than monthly Total Score: 1 Score Reviewed/Action Taken: Yes EAN-7 AMB Questionnaire EAN-7 Date EAN - 7 assessed: 08/24/24 Feeling nervous, anxious, or on edge: 0 = Not at all Not being able to stop or control worryin = Not at all Worrying too much about different things: 0 = Not at all Trouble relaxin = Not at all Being so restless that it is hard to sit still: 0 = Not at all Becoming easily annoyed or irritable: 0 = Not at all Feeling afraid as if something awful might happen: 0 = Not at all Total EAN-7 score (0-4 normal; 5-9 mild; 10-14 moderate; 15-21 severe): 0 Source: Developed by Drs. Angel Orozco, Zohreh Flores, Rah Hill and colleagues, with an educational john from [employer]. Review of Systems Const Denies chills, Reports difficulty sleeping (Rx helps), Denies fatigue, Denies fever(s) and Denies headache(s) ENT Denies dysphagia, Denies dizziness, Denies otalgia, Denies headache(s), Denies neck pain, Denies odynophagia and Denies sore throat Card Denies chest pain, Denies palpitations and Denies dyspnea Resp Denies cough, Denies dyspnea and Denies wheezing GI Denies abdominal pain, Denies constipation, Denies dysphagia, Denies heartburn, Denies diarrhea, Denies nausea, Denies odynophagia and Denies vomiting Denies dysuria, Denies nocturia and Denies urinary frequency Musc Denies back pain, Reports arthralgias (especially over his knees) and Denies neck pain Skin/Breast Denies rash Neuro Denies dizziness, Denies headache(s) and Denies convulsions Endo Denies fatigue and Denies palpitations Aller/Immun Denies wheezing Physical exam (Primary Care) Vital Signs: Last Vital Signs Pulse 76 08/24/24 10:39 BP 130/80 08/24/24 10:39 Pulse Ox 95 08/24/24 10:39 Oxygen Delivery Method Room Air 08/24/24 10:39 BMI result Body Mass Index 28.0 Tobacco/Smoking Status: Tobacco use Status Tobacco use date assessed 08/24/24 08/24/24 10:43 Patient Tobacco Use Status Former Tobacco user 08/24/24 10:43 Tobacco use type Cigarette 08/24/24 10:43 e-Cigarette/Vaping Use Never Used 08/24/24 10:43 PHQ-9: PHQ-9 Score PHQ-9: Total score 0 08/24/24 11:29 Depression Screening Interpretation: Negative Thrive Assessment: Date of Thrive Assessment Date Thrive assessed 08/24/24 08/24/24 10:43 Currently or been in a relationship where the following occur: No concerns reported Const General: no acute distress and alert HENMT Ears: TM's normal bilaterally and EAC's normal Throat: Yes posterior oropharynx normal and Yes tonsils normal (no TP congestion) Neck Neck: Yes no lymphadenopathy and Yes supple Thyroid: Thyroid normal Resp Auscultation: clear to auscultation bilaterally, no rales and no wheezes Cardio Rate: regular rate Rhythm: regular rhythm Heart sounds: no murmurs GI Palpation (GI): Soft to palpation and nontender Auscultation: normal bowel sounds General: Yes no CVA tenderness Back/Spine/Pelvis Back: no CVA tenderness Thoracic/Lumbar Spine: No lumbar spinal tenderness Skin Rashes: no rashes Extrem General: Yes no clubbing, cyanosis or edema Left lower extremity: knee Details: tenderness (chronic); no swelling Results Reviewed Results Reviewed: Laboratory Tests 08/24/24 08/24/24 07:32 07:33 WBC 3.6 L Hgb 15.4 Hct 44.2 Plt Count 141 L Sodium 143 Potassium 4.2 Creatinine 0.89 Estimated GFR > 60 Fasting Glucose 104 H Calcium 9.9 AST 26 ALT 41 H Triglycerides 78 Cholesterol 161 LDL Cholesterol, Calc 92 HDL Cholesterol 54 25-OH Vitamin D Total 42.5 TSH 1.13 Ur Specific [place] 1.020 Urine Protein Negative Urine Glucose (UA) Negative Urine Blood Negative Urine Nitrite Negative Ur Leukocyte Esterase Negative Phenytoin 10.5 Coding Level of Care Code Est Pt Level 4 (14806) Diagnoses Pure hypercholesterolemia E78.00 Benign essential hypertension I10 Migraine without status migrainosus, not intractable, unspecified migraine type G43.909 Migraine type: unspecified Status migrainosus presence: without status migrainosus Intractability: not intractable Gastroesophageal reflux disease without esophagitis K21.9 Esophagitis presence: without esophagitis Nonintractable epilepsy without status epilepticus, unspecified epilepsy type G40.909 Epilepsy type: unspecified Intractability: not intractable Status epilepticus: without status epilepticus Primary osteoarthritis of left knee M17.12 Osteoarthritis type: primary Mild obstructive sleep apnea G47.33 Constipation, unspecified constipation type K59.00 Constipation type: unspecified constipation type Primary insomnia F51.01 Insomnia type: primary Anxiety F41.9 Episode of recurrent major depressive disorder, unspecified depression episode severity F33.9 Depression Type: major depressive disorder Major depression recurrence: recurrent Active/Remission status: currently active Major depression episode severity: unspecified Overweight (BMI 25.0-29.9) E66.3 Additional Codes PHQ-9 - 47368 - PHQ-9 Billing: Yes ([id number]) Assessment & Plan Assessment & Plan (1) Pure hypercholesterolemia: Code(s): E78.00 - Pure hypercholesterolemia, unspecified Category: Medical Plan: Results of his labs done earlier today reviewed and discussed with patient Reinforced low cholesterol diet Continue Atorvastatin 40 mg QD Will recheck his labs and fasting lipids in 4 months for follow up (2) Benign essential hypertension: Code(s): I10 - Essential (primary) hypertension Category: Medical Plan: Reinforced low sodium diet -? goal is systolic BP of 120 mm or less Continue Lisinopril 5 mg QD (3) Migraine: Code(s): G43.909 - Migraine, unspecified, not intractable, without status migrainosus Category: Medical Qualifiers: Migraine type: unspecified Status migrainosus presence: without status migrainosus Intractability: not intractable Qualified Code(s): G43.909 - Migraine, unspecified, not intractable, without status migrainosus Plan: Stable -? continue Fioricet tablet every 4-6 hours as needed and Sumatriptan 100 mg PRN (4) GERD (gastroesophageal reflux disease): Code(s): K21.9 - Gastro-esophageal reflux disease without esophagitis Category: Medical Qualifiers: Esophagitis presence: without esophagitis Qualified Code(s): K21.9 - Gastro-esophageal reflux disease without esophagitis Plan: Dietary restrictions reinforced Continue Omeprazole 20 mg QD (5) Epilepsy: Comment: controlled with phenytoin-no recent seizures-PCP manages Code(s): G40.909 - Epilepsy, unspecified, not intractable, without status epilepticus Category: Medical Qualifiers: Epilepsy type: unspecified Intractability: not intractable Status epilepticus: without status epilepticus Qualified Code(s): G40.909 - Epilepsy, unspecified, not intractable, without status epilepticus Plan: Stable with no recent recurrence of seizures Continue Dilantin 200 mg BID Follow-up with neurology as scheduled (6) Osteoarthritis of left knee: Code(s): M17.12 - Unilateral primary osteoarthritis, left knee Category: Medical Qualifiers: Osteoarthritis type: primary Qualified Code(s): M17.12 - Unilateral primary osteoarthritis, left knee Plan: States that his joint pains remain adequately controlled on his current medications Continue Celecoxib 200 mg once a day as needed, Gabapentin 400 mg TID and Tramadol 50 mg 3 to 4 times a day as needed for pain Follow-up with Orthopedics as scheduled (7) Mild obstructive sleep apnea: Comment: Home sleep study done at [facility] on 06/24/2016 showed (+) mild degree of NIKHIL, with episodes mostly occurring in the supine position Patient was advised to lose weight and avoid sleeping on his back as much as possible to help address these issues; will consider repeat surgery with CPAP titration if symptoms do not improve with conservative corrective measures Code(s): G47.33 - Obstructive sleep apnea (adult) (pediatric) Category: Medical Plan: Patient reports no recent problems and his symptoms remain well-controlled, with no intervention needed at this time Follow up with Sleep Medicine as scheduled (8) Constipation: Code(s): K59.00 - Constipation, unspecified Category: Medical Qualifiers: Constipation type: unspecified constipation type Qualified Code(s): K59.00 - Constipation, unspecified Plan: Improved/controlled - encouraged to continue increased oral fluids and dietary fiber Continue Colace 100 mg QD PRN (9) Insomnia: Code(s): G47.00 - Insomnia, unspecified Category: Medical Qualifiers: Insomnia type: primary Qualified Code(s): F51.01 - Primary insomnia Plan: Sleep hygiene reinforced Continue Zolpidem 10 mg daily at bedtime as needed He is also on Mirtazapine, which helps with his sleep as well (10) Anxiety: Code(s): F41.9 - Anxiety disorder, unspecified Category: Medical Plan: Patient? states that he is doing well with his anxiety overall Continue Escitalopram 10 mg QD Follow-up with mental health counselor at [facility] as scheduled (11) Depression: Code(s): F32.9 - Major depressive disorder, single episode, unspecified Category: Medical Qualifiers: Depression Type: major depressive disorder Major depression recurrence: recurrent Active/Remission status: currently active Major depression episode severity: unspecified Qualified Code(s): F33.9 - Major depressive disorder, recurrent, unspecified Plan: Continue Mirtazapine 30 mg Q HS and Escitalopram 10 mg Q AM Follow-up with Psychiatry as scheduled (12) Overweight (BMI 25.0-29.9): Code(s): E66.3 - Overweight Category: Medical Plan: Reinforced diet/exercise as tolerated/lose weight Plan Follow up in 4 months Orders: Orders Lipid Panel 4 Months E78.00 - Pure hypercholesterolemia, unspecified Comprehensive [place]. Panel Fast 4 Months E78.00 - Pure hypercholesterolemia, unspecified TSH reflex Free T4 4 Months E78.00 - Pure hypercholesterolemia, unspecified UA CC w/rflx Micro + Cult 4 Months R30.0 - Dysuria Vitamin D 25-OH Total 4 Months E55.9 - Vitamin D deficiency, unspecified Phenytoin Dilantin 4 Months G40.909 - Epilepsy, unspecified, not intractable, without status epilepticus Complete Blood Count Auto Diff 4 Months D64.9 - Anemia, unspecified
== END 2024-08-24 11:33 | disposition home or self-care (01) ==
PROVIDERS: PCP Internal Medicine; Visit Provider Internal Medicine
DX: E78.00 Pure hypercholesterolemia, unspecified (principal); G40.909 Epilepsy, unspecified, not intractable, without status epilepticus; F33.9 Major depressive disorder, recurrent, unspecified; I10 Essential (primary) hypertension; G43.909 Migraine, unspecified, not intractable, without status migrainosus; K21.9 Gastro-esophageal reflux disease without esophagitis; M17.12 Unilateral primary osteoarthritis, left knee; G47.33 Obstructive sleep apnea (adult) (pediatric); K59.00 Constipation, unspecified; F51.01 Primary insomnia; F41.9 Anxiety disorder, unspecified; E66.3 Overweight

== ENCOUNTER 2025-05-31 10:22 | Outpatient (AMB) | payer OTHER, SELFPAY ==
--- NOTE | 2025-05-31 10:30 | A.OFFPC_ITS ---
Vital Signs 05/31/25 10:31 Height 5 ft 8 in Weight 188 lb 6 oz BMI 28.6 BP 120/80 Blood Pressure Location Lt brachial Position Sitting Pulse 78 Pulse Source Pulse Oximeter Pulse Oximetry (%) 97 Oxygen Delivery Method Room Air Intake Visit Reasons: [facility] 05/25 Window Assembler Required: No Accompanied by: Self / Same As Patient Allergies No Known Allergies Allergy (Mild, Verified 06/01/25 05:21) N/A Medication List - Last Reconciled 06/01/25 by Moises Pierre MD atorvastatin 40 mg PO DAILY gsreqbiuzk-oyqztntcbczyl-rlvv 50-325-40 mg 1 tab PO Q6H PRN ceftriaxone 2 grams IM DAILY celecoxib 200 mg PO DAILY PRN 90 days docusate sodium 100 mg PO DAILY PRN escitalopram oxalate 10 mg PO DAILY gabapentin 400 mg PO TID 90 days lisinopril 5 mg PO DAILY mirtazapine 30 mg PO BEDTIME 90 days pantoprazole 40 mg PO DAILY 90 days phenytoin sodium extended 200 mg (2 x 100 mg) PO BID 5 days sildenafil 50 mg PO DAILY PRN tramadol 50 mg PO Q6H PRN 90 days zolpidem 10 mg PO BEDTIME PRN 30 days Tobacco use date assessed: 05/31/25 Fall risk assessment: No Falls in past year Last assessed Fall Risk: 05/31/25 Dental Screening Dental Screen Date: 05/31/25 Did you have a dental visit in the last 12 months?: Yes Did you have a dental problem in the last 6 months where you did not have access to dental care?: No Was dental information given to patient?: Patient has dentist HPI [facility] 05/25 HPI Details Patient comes in today for his [facility] follow up visit - he was last seen by me late last year in 08/2024 Patient was admitted to [facility] last week from 05/19/2025 to 05/25/2025 for 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 - he underwent total left knee arthroplasty a few weeks ago on 04/02/2025 He presented to the ER back on 05/19/2025 with with progressive redness and pain of the skin over his left knee States that his postop recovery was uneventful until late last month He was initially prescribed oral Bactrim by [facility] when he went to see them earlier this month for the above complaint what his symptoms persisted and he noticed a small pustular area over his knee that drained spontaneously; he was also experiencing low-grade fever at the time and these prompted him to go to the ER for further evaluation In the ER, aspiration of the left knee was attempted but only about 0.5 mL of blood was recovered He was then started on IV antibiotics and admitted for further management Orthopedics was consulted and they were able to aspirate some fluid from his knee, which was sent to the lab for processing He was initially started on IV vancomycin and ceftriaxone pending culture and sensitivity studies of his knee aspirate His knee aspirate came back showing (+) Gram-negative rods and ID 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 A PICC line was placed on patient's right arm and he was continued on IV ceftriaxone 2 gm Q 24 hours for a total of 6 weeks, which will be completed on 06/29/2025 Patient states that he currently feels okay He denies any fever, headaches or dizziness Denies any chest pains, no shortness of breath No nausea/vomiting, no abdominal pain No change in bowel habits noted [facility] Medical History (Updated 06/01/25 @ 05:48 by Moises Pierre MD) Overweight (BMI 25.0-29.9) Depression Anxiety Insomnia Constipation Mild obstructive sleep apnea Epilepsy GERD (gastroesophageal reflux disease) Osteoarthritis of left knee Migraine Pure hypercholesterolemia Benign essential hypertension HTN (hypertension) High blood cholesterol Surgical History (Updated 06/01/25 @ 05:46 by Moises Pierre MD) History of total knee arthroplasty History of back surgery History of esophagogastroduodenoscopy (EGD) Hx of colonoscopy History of placement of ear tubes History of appendectomy History of left knee replacement (~11/2011) Family History Father Stroke Cardiovascular disease Mother Diabetes Social History Housing: House Alcohol intake: current Alcohol intake frequency: a few times a month Alcohol type: beer Patient Tobacco Use Status: Former Tobacco user Tobacco use type: Cigarette e-Cigarette/Vaping Use: Never Used Second Hand Smoke Exposure: Yes service: No Current occupational status: employed Cognitive needs: No Hearing needs: No Vision needs: No Questionnaire PHQ-9 Over the last 2 weeks, how often have you been bothered by any of the following problems? 1. Little interest or pleasure in doing things: not at all 2. Feeling down, depressed, or hopeless: not at all 3. Trouble falling or staying asleep, or sleeping too much: nearly every day 4. Feeling tired or having little energy: nearly every day 5. Poor appetite or overeating: several days 6. Feeling bad about yourself - or that you are a failure or have let yourself or your family down: not at all 7. Trouble concentrating on things, such as reading the newspaper or watching television: not at all 8. Moving or speaking so slowly that other people could have noticed. Or the opposite - being so fidgety or restless that you have been moving around a lot more than usual: not at all 9. Thoughts that you would be better off or of hurting yourself in some way: not at all Total score: 7 Depression Screening Interpretation: Positive Depression Screening Follow-up: Existing condition and In treatment Depression Screening Done: Yes 79313 - PHQ-9 Billing: Yes Source: Developed by Drs. Angel Orozco, Zohreh Flores, Rah Hill and colleagues, with an educational john from [employer]. Thrive Questionnaire Date Thrive assessed: 05/31/25 I am a: Patient What is your living situation today?: I have a steady place to live Within the past 12 months, did the food you bought not last and you didn't have the money to get more?: Often true Within the past 12 months, did you worry whether your food would run out before you got money to buy more?: Never true Do you have trouble paying for medicines?: No Do you have trouble getting transportation to medical appointments?: No Do you have trouble paying your heating and electricity bill?: No Do you have trouble taking care of your child, family member or friend?: No Do you have trouble with day-to-day activities such as bathing, preparing meals, shopping, managing finances, etc.?: No Are you currently unemployed and looking for a job?: No Are you interested in more education?: No Please select the resources that you would like help with: None Currently or been in a relationship where the following occur: No concerns reported THRIVE Score: 1 AUDIT C Alcohol Use Questionnaire (AUDIT-C) 1. How often do you have a drink containing alcohol?: 2-4 times a month 2. How many drinks containing alcohol do you have on a typical day when you are drinking?: 1 or 2 3. How often do you have six or more drinks on one occasion?: Never Total Score: 2 Score Reviewed/Action Taken: Yes EAN-7 AMB Questionnaire EAN-7 Date EAN - 7 assessed: 05/31/25 Feeling nervous, anxious, or on edge: 1 = Several days Not being able to stop or control worryin = More than half the days Worrying too much about different things: 1 = Several days Trouble relaxin = More than half the days Being so restless that it is hard to sit still: 3 = Nearly every day Becoming easily annoyed or irritable: 3 = Nearly every day Feeling afraid as if something awful might happen: 1 = Several days Total EAN-7 score (0-4 normal; 5-9 mild; 10-14 moderate; 15-21 severe): 13 Source: Developed by Drs. Angel Orozco, Zohreh Flores, Rah colbert nd colleagues, with an educational john from [employer]. Review of Systems Const Denies chills, Reports difficulty sleeping (Rx helps), Denies fatigue, Denies fever(s) and Denies headache(s) ENT Denies dysphagia, Denies dizziness, Denies otalgia, Denies headache(s), Denies neck pain, Denies odynophagia and Denies sore throat Card Denies chest pain, Denies palpitations and Denies dyspnea Resp Denies cough, Denies dyspnea and Denies wheezing GI Denies abdominal pain, Denies constipation, Denies dysphagia, Denies heartburn, Denies diarrhea, Denies nausea, Denies odynophagia and Denies vomiting Denies dysuria, Denies nocturia and Denies urinary frequency Musc Denies back pain, Reports arthralgias (L knee - improving) and Denies neck pain Skin/Breast Denies rash Neuro Denies dizziness, Denies headache(s) and Denies convulsions Endo Denies fatigue and Denies palpitations Aller/Immun Denies wheezing Physical exam (Primary Care) Vital Signs: Last Vital Signs Pulse 78 05/31/25 10:31 BP 120/80 05/31/25 10:31 Pulse Ox 97 05/31/25 10:31 Oxygen Delivery Method Room Air 05/31/25 10:31 BMI result Body Mass Index 28.6 Tobacco/Smoking Status: Tobacco use Status Tobacco use date assessed 05/31/25 05/31/25 10:37 Patient Tobacco Use Status Former Tobacco user 05/31/25 10:37 Tobacco use type Cigarette 05/31/25 10:37 e-Cigarette/Vaping Use Never Used 05/31/25 10:37 PHQ-9: PHQ-9 Score PHQ-9: Total score 7 05/31/25 11:17 Depression Screening Interpretation: Positive Depression Screening Follow-up: Existing condition and In treatment Thrive Assessment: Date of Thrive Assessment Date Thrive assessed 05/31/25 05/31/25 10:37 Currently or been in a relationship where the following occur: No concerns reported Const General: no acute distress and alert HENMT Ears: TM's normal bilaterally and EAC's normal Throat: Yes posterior oropharynx normal and Yes tonsils normal (no TP congestion) Neck Neck: Yes no lymphadenopathy and Yes supple Thyroid: Thyroid normal Resp Auscultation: clear to auscultation bilaterally, no rales and no wheezes Cardio Rate: regular rate Rhythm: regular rhythm Heart sounds: no murmurs GI Palpation (GI): Soft to palpation and nontender Auscultation: normal bowel sounds General: Yes no CVA tenderness Back/Spine/Pelvis Back: no CVA tenderness Thoracic/Lumbar Spine: No lumbar spinal tenderness Skin Rashes: no rashes Extrem Other: (+) PICC line on right arm General: Yes no clubbing, cyanosis or edema Left lower extremity: knee Details: tenderness (chronic); no swelling Coding Level of Care Code Est Pt Level 4 (44225) Diagnoses Infection of prosthetic joint, sequela T84.50XS Encounter type: sequela Pure hypercholesterolemia E78.00 Benign essential hypertension I10 Migraine without status migrainosus, not intractable, unspecified migraine type G43.909 Migraine type: unspecified Status migrainosus presence: without status migrainosus Intractability: not intractable Gastroesophageal reflux disease without esophagitis K21.9 Esophagitis presence: without esophagitis Nonintractable epilepsy without status epilepticus, unspecified epilepsy type G40.909 Epilepsy type: unspecified Intractability: not intractable Status epilepticus: without status epilepticus Mild obstructive sleep apnea G47.33 Constipation, unspecified constipation type K59.00 Constipation type: unspecified constipation type Primary insomnia F51.01 Insomnia type: primary Anxiety F41.9 Episode of recurrent major depressive disorder, unspecified depression episode severity F33.9 Depression Type: major depressive disorder Major depression recurrence: recurrent Active/Remission status: currently active Major depression episode severity: unspecified Overweight (BMI 25.0-29.9) E66.3 Additional Codes PHQ-9 - 18268 - PHQ-9 Billing: Yes ([id number]) Assessment & Plan Assessment & Plan (1) Prosthetic joint infection: Code(s): T84.50XA - Infection and inflammatory reaction due to unspecified internal joint prosthesis, initial encounter Category: Medical Qualifiers: Encounter type: sequela Qualified Code(s): T84.50XS - Infection and inflammatory reaction due to unspecified internal joint prosthesis, sequela Plan: (+) 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 Burns at [facility] on 04/02/2025 His initial postop course was uneventful until he started noticing progressive pain and swelling of his left knee in late April 2025 He was initially started on oral Bactrim by Orthopedics but he went to the ER when his symptoms got significantly worse and he started experiencing low-grade fever, which led to his admission to the hospital He was initially started on vancomycin and ceftriaxone and was later continued on IV ceftriaxone when his knee aspirate came back (+) for gram-negative rods He will continue on IV ceftriaxone 2 gm QD until 06/29/2025 Will send him for repeat CBC and CMP for follow-up Follow-up with orthopedics as scheduled Continue Celecoxib 200 mg once a day as needed, Gabapentin 400 mg TID and Tramadol 50 mg 3 to 4 times a day as needed for pain (2) Pure hypercholesterolemia: Code(s): E78.00 - Pure hypercholesterolemia, unspecified Category: Medical Plan: Reinforced low cholesterol diet Continue Atorvastatin 40 mg QD Will recheck his labs and fasting lipids in 4 months for follow up (3) Benign essential hypertension: Code(s): I10 - Essential (primary) hypertension Category: Medical Plan: Reinforced low sodium diet -? goal is systolic BP of 120 mm or less Continue Lisinopril 5 mg QD (4) Migraine: Code(s): G43.909 - Migraine, unspecified, not intractable, without status migrainosus Category: Medical Qualifiers: Migraine type: unspecified Status migrainosus presence: without status migrainosus Intractability: not intractable Qualified Code(s): G43.909 - Migraine, unspecified, not intractable, without status migrainosus Plan: Controlled -? continue Fioricet tablet every 4-6 hours as needed and Sumatriptan 100 mg PRN (5) GERD (gastroesophageal reflux disease): Code(s): K21.9 - Gastro-esophageal reflux disease without esophagitis Category: Medical Qualifiers: Esophagitis presence: without esophagitis Qualified Code(s): K21.9 - Gastro-esophageal reflux disease without esophagitis Plan: Dietary restrictions reinforced Continue Omeprazole 20 mg QD (6) Epilepsy: Comment: controlled with phenytoin-no recent seizures-PCP manages Code(s): G40.909 - Epilepsy, unspecified, not intractable, without status epilepticus Category: Medical Qualifiers: Epilepsy type: unspecified Intractability: not intractable Status epilepticus: without status epilepticus Qualified Code(s): G40.909 - Epilepsy, unspecified, not intractable, without status epilepticus Plan: Stable with no recurrence of seizures for years Continue Dilantin 200 mg BID Follow-up with neurology as scheduled (7) Mild obstructive sleep apnea: Comment: Home sleep study done at [facility] on 06/24/2016 showed (+) mild degree of NIKHIL, with episodes mostly occurring in the supine position Patient was advised to lose weight and avoid sleeping on his back as much as possible to help address these issues; will consider repeat surgery with CPAP titration if symptoms do not improve with conservative corrective measures Code(s): G47.33 - Obstructive sleep apnea (adult) (pediatric) Category: Medical Plan: Patient reports no recent problems and his symptoms remain well-controlled, with no intervention needed at this time Follow up with Sleep Medicine as scheduled (8) Constipation: Code(s): K59.00 - Constipation, unspecified Category: Medical Qualifiers: Constipation type: unspecified constipation type Qualified Code(s): K59.00 - Constipation, unspecified Plan: Improved/controlled - encouraged to continue increased oral fluids and dietary fiber Continue Colace 100 mg QD PRN (9) Insomnia: Code(s): G47.00 - Insomnia, unspecified Category: Medical Qualifiers: Insomnia type: primary Qualified Code(s): F51.01 - Primary insomnia Plan: Sleep hygiene reinforced Continue Zolpidem 10 mg daily at bedtime as needed He is also on Mirtazapine, which helps with his sleep as well (10) Anxiety: Code(s): F41.9 - Anxiety disorder, unspecified Category: Medical Plan: Patient? states that he is doing well with his anxiety overall Continue Escitalopram 10 mg QD Follow-up with mental health counselor at [facility] as scheduled (11) Depression: Code(s): F32.9 - Major depressive disorder, single episode, unspecified Category: Medical Qualifiers: Depression Type: major depressive disorder Major depression recurrence: recurrent Active/Remission status: currently active Major depression episode severity: unspecified Qualified Code(s): F33.9 - Major depressive disorder, recurrent, unspecified Plan: Continue Mirtazapine 30 mg Q HS and Escitalopram 10 mg Q AM Follow-up with Psychiatry as scheduled (12) Overweight (BMI 25.0-29.9): Code(s): E66.3 - Overweight Category: Medical Plan: Reinforced diet/exercise as tolerated/lose weight Plan Follow up in 4 months Orders: Orders Vitamin D 25-OH Total 4 Months E55.9 - Vitamin D deficiency, unspecified Complete Blood Count Auto Diff 4 Months D64.9 - Anemia, unspecified Comprehensive [place]. Panel Fast 4 Months E78.00 - Pure hypercholesterolemia, unspecified Lipid Panel 4 Months E78.00 - Pure hypercholesterolemia, unspecified TSH reflex Free T4 4 Months E78.00 - Pure hypercholesterolemia, unspecified UA CC w/rflx Micro + Cult 4 Months R30.0 - Dysuria Phenytoin Dilantin 4 Months G40.909 - Epilepsy, unspecified, not intractable, without status epilepticus Complete Blood Count Auto Diff 05/31/25 T84.50XS - Infection and inflammatory reaction due to unspecified internal joint prosthesis, sequela Comprehensive Met. Panel 05/31/25 T84.50XS - Infection and inflammatory reaction due to unspecified internal joint prosthesis, sequela
[2025-05-31 10:31] VITALS: BP 120/80; PULSE 78; O2SAT 97; BMI 28.6
--- OUTSIDE RECORDS SUMMARY | 2025-05-31 12:20 | XMS_ITS | Clinical Summary ---
Author Organization [employer] Address [address] [place] [address] [address] [place] [address] Care Team Providers Care Supervisor Mold [employer] Name Role Phone Unavailable Primary Care Provider Unavailabl e Social History Tobacco Use Types Packs/Day Years Used Date Smoking Tobacco: Never Assessed Sex and Gender Information Value Date Recorded Sex Assigned at Male 07/13/2022 10:24 AM EDT Legal Sex Male 10:24 AM EDT Gender Identity Not on file Sexual Orientation Not on file Plan of Treatment Health Maintenance Due Date Last Done Comments CT Colonography 1960 Colonoscopy 1960 Colorectal Cancer Screening 1960 Depression Screening 1960 FIT DNA/Cologuard 1960 FIT 1960 FOBT 1960 Lipid Panel 1960 Sigmoidoscopy 1960 Disability Screening 1960 Alcohol/Substance Use Screening 1972 Tobacco Screening 1972 DTaP/Tdap/Td Vaccines (1 - Tdap) 1979 Pneumococcal Vaccine: 50+ Ye ars (1 of 1 - PCV) 2010 Zoster Vaccines (1 of 2) 2010 COVID-19 Vaccine (1 - 2023-2 5 season) 2025 Influenza Vaccine (#1) 2025 RSV Patients and Pa tients Aged 60 years or older (1 - 1-dose 75+ series) 2035 HIB Vaccines Aged Out No longer eligi ble based on patient's age to complete this topic HPV Vaccines Aged Out No longer eligi ble based on patient's age to complete this topic Hepatitis A Vaccines Aged Out No long er eligible based on patient's age to complete this topic Hepatitis B Vaccines Aged Out No long er eligible based on patient's age to complete this topic IPV Vaccines Aged Out No longer eligi ble based on patient's age to complete this topic Meningococcal B Vaccine Aged Out No l onger eligible based on patient's age to complete this topic Meningococcal Vaccine Aged Out No sveta al eligible based on patient's age to complete this topic RSV under 20 months Aged Out No longe r eligible based on patient's age to complete this topic Rotavirus Vaccines Aged Out No longer eligible based on patient's age to complete this topic
--- OUTSIDE RECORDS SUMMARY | 2025-05-31 12:20 | XMS_ITS | Encounter Summary ---
Author Organization [employer] Address [address] [place] [address] [address] [place] [address] Care Team Providers Care Business Job Titles Name Role Phone Unavailable Primary Care Provider Unavailabl e Encounter Details Date Type Department Care Team (Latest Contact Info) Description 12/02/2018 Abstract C CONVERSIONS Dental, Provider, DDS Social History Tobacco Use Types Packs/Day Years Used Date Smoking Tobacco: Never Assessed Sex and Gender Information Value Date Recorded Sex Assigned at Male 07/13/2022 10:24 AM EDT Legal Sex Male 10:24 AM EDT Gender Identity Not on file Sexual Orientation Not on file documented as of this encounter Plan of Treatment Not on file documented as of this encounter Visit Diagnoses Not on filedocumented in this encounter
== END 2025-05-31 11:24 | disposition home or self-care (01) ==
LOC: HO.HMCH 10:23
PROVIDERS: PCP Internal Medicine; Visit Provider Internal Medicine
DX: E78.00 Pure hypercholesterolemia, unspecified (principal); T84.50XS Infection and inflammatory reaction due to unspecified internal joint prosthesis, sequela; G40.909 Epilepsy, unspecified, not intractable, without status epilepticus; I10 Essential (primary) hypertension; G43.909 Migraine, unspecified, not intractable, without status migrainosus; K21.9 Gastro-esophageal reflux disease without esophagitis; G47.33 Obstructive sleep apnea (adult) (pediatric); K59.00 Constipation, unspecified; F51.01 Primary insomnia; F41.9 Anxiety disorder, unspecified; F33.9 Major depressive disorder, recurrent, unspecified; E66.3 Overweight

== ENCOUNTER → 2025-05-31 10:22 | Outpatient (BNVA) | payer OTHER, SELFPAY | PROVIDERS: PCP Internal Medicine; Visit Provider Internal Medicine | DX: I10 Essential (primary) hypertension (principal); E78.00 Pure hypercholesterolemia, unspecified; G43.909 Migraine, unspecified, not intractable, without status migrainosus; K21.9 Gastro-esophageal reflux disease without esophagitis; G40.909 Epilepsy, unspecified, not intractable, without status epilepticus; G47.33 Obstructive sleep apnea (adult) (pediatric); K59.00 Constipation, unspecified; F51.01 Primary insomnia; F41.9 Anxiety disorder, unspecified; F33.9 Major depressive disorder, recurrent, unspecified; E66.3 Overweight; E55.9 Vitamin D deficiency, unspecified; D64.9 Anemia, unspecified; R30.0 Dysuria; T84.54XD Infection and inflammatory reaction due to internal left knee prosthesis, subsequent encounter; X58.XXXD Exposure to other specified factors, subsequent encounter; Z68.28 Body mass index [BMI] 28.0-28.9, adult | CPT/HCPCS: 96127 ==

== ENCOUNTER → 2025-06-06 23:59 | Outpatient (BNV) | payer OTHER, SELFPAY | PROVIDERS: PCP Internal Medicine; Visit Provider Internal Medicine | DX: T84.89XA Other specified complication of internal orthopedic prosthetic devices, implants and grafts, initial encounter (principal); T81.43XA Infection following a procedure, organ and space surgical site, initial encounter; T84.54XA Infection and inflammatory reaction due to internal left knee prosthesis, initial encounter | CPT/HCPCS: G0180 ==

== ENCOUNTER 2025-07-02 06:59 | Outpatient (REF) | payer MEDICARE, SELFPAY ==
--- OUTSIDE RECORDS SUMMARY | 2024-05-01 07:20 | XMS_ITS ---
Author Organization [facility] Address [address] [place] [address] Care Team Providers Care Wireless Retail Manager Name Role Phone Ignacio OLIVERA, [place] Primary Care Provider Angel Whipple Unavailable [phone] REASON FOR VISIT screening Problems Problem Type SNOMED Code ICD Code Onset Dates Problem Status W/U Status Risk Notes Problem Diverticular disease of colon (532434936) Diverticulosis of large intestine without perforation or abscess without bleeding (K57.30) Active confirmed Encounters Encounter Location Date Provider Diagnosis [facility] [place] Outpatient [address], [place] [phone] 05/01/2024 Angel Calderón Colon cancer scree fabio [...] Progress Notes * MACARIO THOMAS ADOB: 0 (64 yo M)Acc No.[id number]:05/01/2024 COLON WITH MAC Patient: MACARIO MO Provider: Liban Calderón MD :1960 A ge:63 Y S ex:Male Date:05/01/2024 Address:[address] [place] [address] [phone] Pcp:Moises Pierre MD Subjective: * Chief Complaints: [...] 0 05/01/2024 Generated for Hanny riley/Toyin/Jaretitting on: 07:02 AM EDT
--- OUTSIDE RECORDS SUMMARY | 2025-07-02 07:03 | XMS_ITS | Patient Health Record ---
Author Organization [facility] Address [address] [place] [address] Care Team Providers Care Director Of Volunteer Services Name Role Phone Ignacio OLIVERA, [place] Primary Care Provider Angel Whipple Unavailable [phone] Allergies No Known Allergies Reason For Referral No Information Medications Medication SIG (Take, Route, Fr equency, Duration) Notes Start Date End Date Status Mirtazapine 30mg Act lisa Doc-Q-Lace 100mg Act lisa Gabapentin 400mg Act lisa traMADol HCl 50mg Ac tive Simvastatin 20mg Act lisa Omeprazole 20mg Acti ve Nortriptyline HCl 50mg Active traZODone HCl 150mg Active Phenytoin 100mg Acti ve Lisinopril 5mg Activ e CeleBREX 200mg Activ e Immunizations Vaccine Route Administration Date Status Comme nts Influenza Unknown 06/01/2023 Administered Problems Problem Type SNOMED Code ICD Code Onset Dates Problem Status W/U Status Risk Notes Problem Colon cancer screening (549834304) Colon cancer screening (Z12.11) Active confirmed Problem Pre-procedure evaluation check (465854117) Encounter for other preprocedural examination (Z01.818) Active confirmed Problem Diverticular disease of colon (682030703) Diverticulosis of large intestine without perforation or abscess without bleeding (K57.30) Active confirmed Problem Gastroesophageal reflux disease (disorder) (509006728) Chronic GERD (K21.9) Active confirmed Plan Of Treatment Future Test Test Name Order Date UPPER GI ENDOSCOPY 10/06/2013 COLONOSCOPY 10/06/2013 COLONOSCOPY 02/11/2024 Insurance Providers Payer Name Payer Address Payer Phone Subscriber Number Group Number Insured Name Patient Relationship to Insured Coverage Start Date Coverage End Date [address] [address] [facility] [address] [facility] [place] [phone] [id number] MACARIO THOMAS Self - patient is the insured Medical (General) History Medical History History ICD Code Colonoscopy 09-24-2003--neg [...]
--- OUTSIDE RECORDS SUMMARY | 2025-07-02 07:03 | XMS_ITS | Clinical Summary ---
Author Organization [employer] Address [address] [place] [address] [address] [place] [address] Care Team Providers Care Peripheral Edp Equipment Operator Name Role Phone Unavailable Primary Care Provider [...]
--- OUTSIDE RECORDS SUMMARY | 2025-07-02 07:03 | XMS_ITS | Encounter Summary ---
Author Organization [employer] Address [address] [place] [address] [address] [place] [address] Care Team Providers Care Finishing Operator Name Role Phone Unavailable Primary Care [...]
[2025-07-02 07:11] LABS: MANUAL DIFF FLAG NO
[2025-07-02 07:28] LABS: Hematocrit 45.1 % (42.0-52.0); Hemoglobin 15.8 g/dl (14.0-18.0); Imm Gran Abs Auto 0.04 X10*3/uL (0.00-0.03); Imm Gran Pct Auto 0.9 % (0.0-0.4); Lymphocytes Absolute Auto 1.0 X10*3/uL (1.2-4.9); Mean Corpuscular HGB Conc 35.0 g/dl (31.0-36.0); Mean Corpuscular Hemoglobin 31.8 pg (27.0-33.0); Mean Corpuscular Volume 90.7 fL (80.0-98.0); NRBC Abs Auto 0.030 X10*3/uL (0.0-0.012); NRBC Pct Auto 0.7 /100WBC (0.0-0.2); Platelet Count 161 X10*3/uL (160-400); Red Blood Count 4.97 X10*6/uL (4.60-5.80); White Blood Count 4.3 X10*3/uL (4.8-10.8)
[2025-07-02 07:37] LABS: Appearance Urine Clear; Glucose Urine UA Negative (Negative); PH 5.5 (5.0-9.0); Specific Gravity - Urine 1.020 (1.005-1.025)
[2025-07-02 08:00] LABS: Alanine Aminotransferase 52 U/L (0-40); Albumin Level 4.7 g/dL (3.5-5.0); Alkaline Phosphatase 85 U/L (39-117); Anion Gap 15 (12-20); Aspartate Amino Transferase 26 U/L (5-37); Blood Urea Nitrogen 18 mg/dL (9-16); Calcium 9.4 mg/dL (8.4-10.2); Carbon Dioxide 21 mmol/L (22-29); Chloride 106 mmol/L (96-108); Cholesterol 168 mg/dL (<200); Estimated Glomerular Filt Rate > 60; HDL Cholesterol 53 mg/dL (>40); Potassium 4.0 mmol/L (3.3-5.1); Sodium 138 mmol/L (135-145); Total Protein 6.6 g/dL (6.5-8.0); Triglycerides 101 mg/dL (<150)
== END 2025-07-02 07:00 | disposition home or self-care (01) ==
LOC: HO.LAB 06:59
PROVIDERS: PCP Internal Medicine; Visit Provider Internal Medicine
DX: R30.0 Dysuria (principal); G40.909 Epilepsy, unspecified, not intractable, without status epilepticus; E78.00 Pure hypercholesterolemia, unspecified; E55.9 Vitamin D deficiency, unspecified; D64.9 Anemia, unspecified
CPT/HCPCS: 36415; 80053; 80061; 80185; 81003; 82306; 84443; 85025

== ENCOUNTER 2025-07-03 13:44 | Outpatient (AMB) | payer MEDICARE, SELFPAY ==
--- OUTSIDE RECORDS SUMMARY | 2024-05-01 07:20 | XMS_ITS ---
Author Organization [facility] Address [address] [place] [address] Care Team Providers Care Personal Coach Name Role Phone Ignacio OLIVERA, [place] Primary Care Provider Angel Whipple Unavailable [phone] REASON FOR VISIT screening Problems Problem Type SNOMED Code ICD Code Onset Dates Problem Status W/U Status Risk Notes Problem Diverticular disease of colon (216793877) Diverticulosis of large intestine without perforation or abscess without bleeding (K57.30) Active confirmed Encounters Encounter Location Date Provider Diagnosis [facility] [place] [place] Outpatient [address], [place] [id number] 05/01/2024 Angel Calderón Colon cancer scree fabio Z12.11 ; Diverticulosis of large intestine without perforation or abscess without bleeding K57.30 and Other hemorrhoids K64.8 Assessments Encounter Date Diagnosis (ICD Code) Assessment Notes Treatment Notes Treatment Clinical Notes Section Notes 05/01/2024 Colon cancer screening (ICD-10 - Z12.11) 05/01/2024 Diverticulosis of large intestine without perforation or abscess without bleeding (ICD-10 - K57.30) 05/01/2024 Other hemorrhoids (ICD-10 - K64.8) Plan Of Treatment No Information Progress Notes * MACARIO THOMAS ADOB: 0 (65 yo M)Acc No.[id number]:05/01/2024 COLON WITH MAC Patient: MACARIO MO Provider: Liban Calderón MD :1960 A ge:63 Y S ex:Male Date:05/01/2024 Address:[address] [place] [address] [id number] Pcp:Moises Pierre MD Subjective: * Chief Complaints: * 1 . Screening. * Medical History: Objective: * Vitals: Assessment: * Assessment: 1. C olon cancer screening - Z12.11 (Primary) 2 . D iverticulosis of large intestine without perforation or abscess without bleeding - K57.30 3 . O ther hemorrhoids - K64.8 Plan: * Treatment: * Procedure Codes: 4 5378 DIAGNOSTIC COLONOSCOPY * * The named appointment provid er may or may not be the originator of this progress note, and it is not deemed complete until electronically signed by the appointment provider. Sign off status: Pending * Provider: Liban Calderón MD Date: 0 05/01/2024 Generated for Hanny riley/Toyin/Jaretitting on: 06:14 PM EDT
[2025-07-03 14:03] VITALS: BP 110/80; PULSE 100; O2SAT 97; BMI 29.3
--- NOTE | 2025-07-03 14:03 | A.OFFPC_ITS ---
Vital Signs 07/03/25 14:03 Height 5 ft 8 in Weight 193 lb BMI 29.3 BP 110/80 Blood Pressure Location Lt brachial Position Sitting Pulse 100 Pulse Source Pulse Oximeter Pulse Oximetry (%) 97 Oxygen Delivery Method Room Air Intake Visit Reasons: follow up [employer] Supervisor Required: No Accompanied by: Self / Same As Patient Allergies No Known Allergies Allergy (Mild, Verified 07/03/25 14:50) N/A Medication List - Last Reconciled 07/03/25 by Moises Pierre MD apixaban (Eliquis) 5 mg PO BID 90 days atorvastatin 40 mg PO DAILY [id number] 50-325-40 mg 1 tab PO Q6H PRN celecoxib 200 mg PO DAILY PRN 90 days docusate sodium 100 mg PO DAILY PRN escitalopram oxalate 10 mg PO DAILY gabapentin 400 mg PO TID 90 days lisinopril 5 mg PO DAILY mirtazapine 30 mg PO BEDTIME 90 days pantoprazole 40 mg PO DAILY 90 days phenytoin sodium extended 200 mg (2 x 100 mg) PO BID 5 days sildenafil 50 mg PO DAILY PRN tramadol 50 mg PO Q6H PRN 90 days zolpidem 10 mg PO BEDTIME PRN 30 days Tobacco use date assessed: 07/03/25 Fall risk assessment: 1 Fall in past year Last assessed Fall Risk: 07/03/25 Dental Screening Dental Screen Date: 07/03/25 Did you have a dental visit in the last 12 months?: Yes Did you have a dental problem in the last 6 months where you did not have access to dental care?: No Was dental information given to patient?: Patient has dentist HPI follow up HPI Details Patient comes in today for his follow up visit He underwent a revision left TKA back on 04/02/2025 and ended up with a prosthetic joint infection a couple of months later - knee aspirate came back positive for Gram-negative rods States that he just completed his 6 weeks course of IV Ceftriaxone a few days ago - was on the Abx from 05/19/2025 to 06/29/2025 via his PICC line He later on suddenly developed increasing swelling and redness of his left arm a couple of weeks ago on 06/20/2025 and eventually went to the ER the next day for further evaluation and was then diagnosed with a DVT of the right upper extremity and was then started on Eliquis at 5 mg BID States that his right arm swelling and pain have improved significantly since and that he currently feels okay He denies any fever, headaches or dizziness Denies any chest pains, no shortness of breath No nausea/vomiting, no abdominal pain No change in bowel habits noted Needs his Phenytoin Rx refilled today He had his follow up labs done yesterday - to discuss his results [facility] Medical History (Updated 07/10/25 @ 16:25 by Moises Pierre MD) Deep vein thrombosis (DVT) of right upper extremity Overweight (BMI 25.0-29.9) Depression Anxiety Insomnia Constipation Mild obstructive sleep apnea Epilepsy GERD (gastroesophageal reflux disease) Osteoarthritis of left knee Migraine Pure hypercholesterolemia Benign essential hypertension HTN (hypertension) High blood cholesterol Surgical History History of total knee arthroplasty History of back surgery History of esophagogastroduodenoscopy (EGD) Hx of colonoscopy History of placement of ear tubes History of appendectomy History of left knee replacement (~11/2011) Family History Father Stroke Cardiovascular disease Mother Diabetes Social History Housing: House Alcohol intake: current Alcohol intake frequency: a few times a month Alcohol type: beer Patient Tobacco Use Status: Former Tobacco user Tobacco use type: Cigarette e-Cigarette/Vaping Use: Never Used Second Hand Smoke Exposure: Yes service: No Current occupational status: employed Cognitive needs: No Hearing needs: No Vision needs: No Questionnaire Thrive Questionnaire Date Thrive assessed: 05/31/25 I am a: Patient What is your living situation today?: I have a steady place to live Within the past 12 months, did the food you bought not last and you didn't have the money to get more?: Often true Within the past 12 months, did you worry whether your food would run out before you got money to buy more?: Never true Do you have trouble paying for medicines?: No Do you have trouble getting transportation to medical appointments?: No Do you have trouble paying your heating and electricity bill?: No Do you have trouble taking care of your child, family member or friend?: No Do you have trouble with day-to-day activities such as bathing, preparing meals, shopping, managing finances, etc.?: No Are you currently unemployed and looking for a job?: No Are you interested in more education?: No Please select the resources that you would like help with: None Currently or been in a relationship where the following occur: No concerns reported THRIVE Score: 1 AUDIT C Alcohol Use Questionnaire (AUDIT-C) 1. How often do you have a drink containing alcohol?: 2-4 times a month 2. How many drinks containing alcohol do you have on a typical day when you are drinking?: 1 or 2 3. How often do you have six or more drinks on one occasion?: Never Total Score: 2 Score Reviewed/Action Taken: Yes EAN-7 AMB Questionnaire EAN-7 Date EAN - 7 assessed: 05/31/25 Source: Developed by Drs. Angel Orozco, Zohreh Flores, Rah Hill and colleagues, with an educational john from [employer]. Review of Systems Const Denies chills, Reports difficulty sleeping (Rx helping), Denies fatigue, Denies fever(s) and Denies headache(s) ENT Denies dysphagia, Denies dizziness, Denies otalgia, Denies headache(s), Denies neck pain, Denies odynophagia and Denies sore throat Card Denies chest pain, Denies palpitations and Denies dyspnea Resp Denies chest congestion, Denies cough, Denies dyspnea and Denies wheezing GI Denies abdominal pain, Denies constipation, Denies dysphagia, Denies heartburn, Denies diarrhea, Denies nausea, Denies odynophagia and Denies vomiting Denies difficulty urinating, Denies dysuria, Denies nocturia and Denies urinary frequency Musc Denies back pain, Reports arthralgias (L knee - improving) and Denies neck pain Skin/Breast Denies rash Neuro Denies dizziness, Denies headache(s) and Denies convulsions Endo Denies fatigue and Denies palpitations Aller/Immun Denies wheezing Physical exam (Primary Care) Vital Signs: Last Vital Signs Pulse 100 07/03/25 14:03 BP 110/80 07/03/25 14:03 Pulse Ox 97 07/03/25 14:03 Oxygen Delivery Method Room Air 07/03/25 14:03 BMI result Body Mass Index 29.3 Tobacco/Smoking Status: Tobacco use Status Tobacco use date assessed 07/03/25 07/03/25 14:04 Patient Tobacco Use Status Former Tobacco user 07/03/25 14:04 Tobacco use type Cigarette 07/03/25 14:04 e-Cigarette/Vaping Use Never Used 07/03/25 14:04 Thrive Assessment: Date of Thrive Assessment Date Thrive assessed 05/31/25 07/03/25 14:04 Currently or been in a relationship where the following occur: No concerns reported Const General: no acute distress and alert HENMT Ears: TM's normal bilaterally and EAC's normal Throat: Yes posterior oropharynx normal and Yes tonsils normal (no TP congestion) Neck Neck: Yes no lymphadenopathy and Yes supple Thyroid: Thyroid normal Resp Auscultation: clear to auscultation bilaterally, no rales and no wheezes Cardio Rate: regular rate Rhythm: regular rhythm Heart sounds: no murmurs GI Palpation (GI): Soft to palpation and nontender Auscultation: normal bowel sounds General: Yes no CVA tenderness Back/Spine/Pelvis Back: no CVA tenderness Thoracic/Lumbar Spine: No lumbar spinal tenderness Skin Rashes: no rashes Extrem General: Yes no clubbing, cyanosis or edema Left lower extremity: knee Details: tenderness (chronic); no swelling Results Reviewed Results Reviewed: Laboratory Tests 07/02/25 07/02/25 07:06 07:10 WBC 4.3 L Hgb 15.8 Hct 45.1 Plt Count 161 Sodium 138 Potassium 4.0 Creatinine 0.91 Estimated GFR > 60 Fasting Glucose 102 H Calcium 9.4 AST 26 ALT 52 H Triglycerides 101 Cholesterol 168 LDL Cholesterol, Calc 95 HDL Cholesterol 53 25-OH Vitamin D Total 26.8 L TSH 2.19 Ur Specific [place] 1.020 Urine Protein Negative Urine Glucose (UA) Negative Urine Blood Negative Urine Nitrite Negative Ur Leukocyte Esterase Negative Phenytoin 11.9 Coding Level of Care Code Est Pt Level 4 (19277) Diagnoses Acute deep vein thrombosis (DVT) of other vein of right upper extremity I82.621 Affected thrombotic vein of extremity: other upper extremity vein Chronicity: acute Infection of prosthetic joint, sequela T84.50XS Encounter type: sequela Pure hypercholesterolemia E78.00 Benign essential hypertension I10 Migraine without status migrainosus, not intractable, unspecified migraine type G43.909 Intractability: not intractable Migraine type: unspecified Status migrainosus presence: without status migrainosus Gastroesophageal reflux disease without esophagitis K21.9 Esophagitis presence: without esophagitis Nonintractable epilepsy without status epilepticus, unspecified epilepsy type G40.909 Epilepsy type: unspecified Intractability: not intractable Status epilepticus: without status epilepticus Mild obstructive sleep apnea G47.33 Constipation, unspecified constipation type K59.00 Constipation type: unspecified constipation type Primary insomnia F51.01 Insomnia type: primary Anxiety F41.9 Episode of recurrent major depressive disorder, unspecified depression episode severity F33.9 Active/Remission status: currently active Depression Type: major depressive disorder Major depression episode severity: unspecified Major depression recurrence: recurrent Overweight (BMI 25.0-29.9) E66.3 Assessment & Plan Assessment & Plan (1) Deep vein thrombosis (DVT) of right upper extremity: Comment: (+) right basilic vein DVT, most likely related to his concurrent PICC line at the time Code(s): I82.621 - Acute embolism and thrombosis of deep veins of right upper extremity Category: Medical Qualifiers: Affected thrombotic vein of extremity: other upper extremity vein Chronicity: acute Qualified Code(s): I82.621 - Acute embolism and thrombosis of deep veins of right upper extremity Plan: This was just diagnosed a couple of weeks ago when patient presented to the ER with right arm pain and swelling Continue Eliquis 5 mg BID (2) Prosthetic joint infection: Code(s): T84.50XA - Infection and inflammatory reaction due to unspecified internal joint prosthesis, initial encounter Category: Medical Qualifiers: Encounter type: sequela Qualified Code(s): T84.50XS - Infection and inflammatory reaction due to unspecified internal joint prosthesis, sequela Plan: (+) 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 Burns at [facility] on 04/02/2025 His initial postop course was uneventful until he started noticing progressive pain and swelling of his left knee in late April 2025 He was initially started on oral Bactrim by Orthopedics but he went to the ER when his symptoms got significantly worse and he started experiencing low-grade fever, which led to his admission to the hospital He was initially started on vancomycin and ceftriaxone and was later continued on IV ceftriaxone when his knee aspirate came back (+) for gram-negative rods He completed his 6 weeks' course of IV ceftriaxone 2 gm QD a few days ago on 06/29/2025 Follow-up with orthopedics as scheduled Continue Celecoxib 200 mg once a day as needed, Gabapentin 400 mg TID and Tramadol 50 mg 3 to 4 times a day as needed for pain (3) Pure hypercholesterolemia: Code(s): E78.00 - Pure hypercholesterolemia, unspecified Category: Medical Plan: Results of his labs done yesterday reviewed and discussed with patient Reinforced low cholesterol diet Continue Atorvastatin 40 mg QD Will recheck his labs and fasting lipids as scheduled in 3 to 4 months for follow up (4) Benign essential hypertension: Code(s): I10 - Essential (primary) hypertension Category: Medical Plan: Reinforced low sodium diet -? goal is systolic BP of 120 mm or less Continue Lisinopril 5 mg QD (5) Migraine: Code(s): G43.909 - Migraine, unspecified, not intractable, without status migrainosus Category: Medical Qualifiers: Intractability: not intractable Migraine type: unspecified Status migrainosus presence: without status migrainosus Qualified Code(s): G43.909 - M igraine, unspecified, not intractable, without status migrainosus Plan: Controlled -? continue Fioricet tablet every 4-6 hours as needed and Sumatriptan 100 mg PRN (6) GERD (gastroesophageal reflux disease): Code(s): K21.9 - Gastro-esophageal reflux disease without esophagitis Category: Medical Qualifiers: Esophagitis presence: without esophagitis Qualified Code(s): K21.9 - Gastro-esophageal reflux disease without esophagitis Plan: Dietary restrictions reinforced Continue Omeprazole 20 mg QD (7) Epilepsy: Comment: controlled with phenytoin-no recent seizures-PCP manages Code(s): G40.909 - Epilepsy, unspecified, not intractable, without status epilepticus Category: Medical Qualifiers: Epilepsy type: unspecified Intractability: not intractable Status epilepticus: without status epilepticus Qualified Code(s): G40.909 - Epilepsy, unspecified, not intractable, without status epilepticus Plan: Stable with no recurrence of seizures for years Continue Dilantin 200 mg BID Follow-up with neurology as scheduled (8) Mild obstructive sleep apnea: Comment: [place] [facility] [place] showed (+) mild degree of NIKHIL, with episodes mostly occurring in the supine position Patient was advised to lose weight and avoid sleeping on his back as much as possible to help address these issues; will consider repeat surgery with CPAP titration if symptoms do not improve with conservative corrective measures Code(s): G47.33 - Obstructive sleep apnea (adult) (pediatric) Category: Medical Plan: Patient reports no recent problems and his symptoms remain well-controlled, with no intervention needed at this time Follow up with Sleep Medicine as scheduled (9) Constipation: Code(s): K59.00 - Constipation, unspecified Category: Medical Qualifiers: Constipation type: unspecified constipation type Qualified Code(s): K59.00 - Constipation, unspecified Plan: Improved/controlled - encouraged to continue increased oral fluids and dietary fiber intake Continue Colace 100 mg QD PRN (10) Insomnia: Code(s): G47.00 - Insomnia, unspecified Category: Medical Qualifiers: Insomnia type: primary Qualified Code(s): F51.01 - Primary insomnia Plan: Sleep hygiene reinforced Continue Zolpidem 10 mg daily at bedtime as needed He is also on Mirtazapine, which helps with his sleep as well (11) Anxiety: Code(s): F41.9 - Anxiety disorder, unspecified Category: Medical Plan: Patient states that he is doing well with his anxiety overall Continue Escitalopram 10 mg QD Follow-up with mental health counselor at [facility] as scheduled (12) Depression: Code(s): F32.9 - Major depressive disorder, single episode, unspecified Category: Medical Qualifiers: Active/Remission status: currently active Depression Type: major depressive disorder Major depression episode severity: unspecified Major depression recurrence: recurrent Qualified Code(s): F33.9 - Major depressive disorder, recurrent, unspecified Plan: Continue Mirtazapine 30 mg Q HS and Escitalopram 10 mg Q AM Follow-up with Psychiatry as scheduled (13) Overweight (BMI 25.0-29.9): Code(s): E66.3 - Overweight Category: Medical Plan: Reinforced diet/exercise as tolerated/lose weight Plan Follow up as scheduled in September 2025 Medications: Changed From phenytoin sodium extended 200 mg (2 x 100 mg) PO BID 5 days 20 caps 0RF G40.909 - Epilepsy, unspecified, not intractable, without status epilepticus To phenytoin sodium extended 200 mg (2 x 100 mg) PO BID 360 caps 3RF 90 days G40.909 - Epilepsy, unspecified, not intractable, without status epilepticus
--- OUTSIDE RECORDS SUMMARY | 2025-07-03 18:14 | XMS_ITS | Clinical Summary ---
Author Organization [employer] Address [address] [place] [address] [address] [place] [address] Care Team Providers Care Hogshead Builder Name Role Phone Unavailable Primary Care Provider [...]
--- OUTSIDE RECORDS SUMMARY | 2025-07-03 18:14 | XMS_ITS | Patient Health Record ---
Author Organization [facility] Address [address] [place] [address] Care Team Providers Care Bill Poster Installer Name Role Phone Ignacio OLIVERA, [place] Primary Care Provider Angel Whipple Unavailable [phone] Allergies No Known Allergies Reason For Referral [...] Status Risk Notes Problem Colon cancer screening (427995410) Colon cancer screening (Z12.11) Active confirmed Problem Pre-procedure evaluation check (111617474) Encounter for other preprocedural examination (Z01.818) Active confirmed Problem Diverticular disease of colon (556371216) Diverticulosis of large intestine without perforation or abscess without bleeding (K57.30) Active confirmed Problem Gastroesophageal reflux disease (disorder) (070735503) Chronic GERD (K21.9) Active confirmed Plan Of Treatment Future Test Test Name Order Date UPPER GI ENDOSCOPY 10/06/2013 COLONOSCOPY 10/06/2013 COLONOSCOPY 02/11/2024 Insurance Providers Payer Name Payer Address Payer Phone Subscriber Number Group Number Insured Name Patient Relationship to Insured Coverage Start Date Coverage End Date [facility] [address] [employer] [facility] [place] [id number] [id number] MACARIO THOMAS Self - patient is the insured Medical (General) History Medical History History ICD Code Colonoscopy 09-24-2003--neg for polyps-ju st internal hemorrhoids GERD Hypertension Migraines Seizure disorder Denies [place],DM,CVA,Lung disease,renal dise ase Hyperlipidemia Takes Gabapentin for [...]
--- OUTSIDE RECORDS SUMMARY | 2025-07-03 18:14 | XMS_ITS | Encounter Summary ---
Author Organization [employer] Address [address] [place] [address] [address] [place] [address] Care Team Providers Care Sales Operations Name Role Phone Unavailable Primary Care Provider [...]
== END 2025-07-03 15:48 | disposition home or self-care (01) ==
LOC: HO.HMCH 13:46
PROVIDERS: PCP Internal Medicine; Visit Provider Internal Medicine
DX: I82.621 Acute embolism and thrombosis of deep veins of right upper extremity (principal); G40.909 Epilepsy, unspecified, not intractable, without status epilepticus; T84.50XS Infection and inflammatory reaction due to unspecified internal joint prosthesis, sequela; E78.00 Pure hypercholesterolemia, unspecified; I10 Essential (primary) hypertension; G43.909 Migraine, unspecified, not intractable, without status migrainosus; K21.9 Gastro-esophageal reflux disease without esophagitis; G47.33 Obstructive sleep apnea (adult) (pediatric); K59.00 Constipation, unspecified; F51.01 Primary insomnia; F41.9 Anxiety disorder, unspecified; F33.9 Major depressive disorder, recurrent, unspecified

== ENCOUNTER → 2025-07-03 13:44 | Outpatient (BNVA) | payer MEDICARE, SELFPAY | PROVIDERS: PCP Internal Medicine; Visit Provider Internal Medicine | DX: I82.621 Acute embolism and thrombosis of deep veins of right upper extremity (principal); T84.50XD Infection and inflammatory reaction due to unspecified internal joint prosthesis, subsequent encounter; E78.00 Pure hypercholesterolemia, unspecified; I10 Essential (primary) hypertension; G43.909 Migraine, unspecified, not intractable, without status migrainosus; K21.9 Gastro-esophageal reflux disease without esophagitis; G40.909 Epilepsy, unspecified, not intractable, without status epilepticus; G47.33 Obstructive sleep apnea (adult) (pediatric); K59.00 Constipation, unspecified; F51.01 Primary insomnia; F41.9 Anxiety disorder, unspecified; F33.9 Major depressive disorder, recurrent, unspecified; E66.3 Overweight | CPT/HCPCS: 99212 ==